=== PATIENT | male | born 1965 | race Caucasian/White ===

== ENCOUNTER 2020-05-11 18:11 | Inpatient (IN) | payer OTHER ==
[~2020-05-11] VITALS: Ht 182.9 cm; Wt 90.3 kg
[2020-05-11 19:13] LABS: BASO % 0 % (0-3); EOS % 0 % (0-3); HEMATOCRIT 39.6 % (39.0-53.0); HEMOGLOBIN 13.1 g/dL (13.0-17.5); LYMPH # 0.5 x10^3/uL (1.0-4.8); LYMPH % 9 % (24-48); MEAN CORPUSCULAR HEMOGLOBIN 30 pg (25-35); MEAN CORPUSCULAR HGB CONC 33 g/dL (31-37); MEAN CORPUSCULAR VOLUME 91 fL (79-100); MONO # 0.5 x10^3/uL (0.0-1.1); MONO % 10 % (0-9); NEUT # 4.4 x10^3/uL (1.8-7.7); NEUT % 81 % (31-73); PLATELET COUNT 201 x10^3/uL (140-400); RED BLOOD COUNT 4.36 x10^6/uL (4.30-5.70); RED CELL DISTRIBUTION WIDTH 15.5 % (11.5-14.5); WHITE BLOOD COUNT 5.5 x10^3/uL (4.0-11.0)
[2020-05-11] MEDS ORDERED: ACETAMINOPHEN 500 MG TABLET PO ONE (19:15)
[2020-05-11 19:20] LABS: CALCIUM 8.2 mg/dL (8.5-10.1); CREATININE 1.7 mg/dL (0.7-1.3); GFR 42.4; POTASSIUM 4.7 mmol/L (3.5-5.1)
--- NOTE | 2020-05-11 19:24 | RAD ---
INDICATION: Reason: n/v/d, PUI / Spl. Instructions: / History: COMPARISON: None. FINDINGS: Single view of chest obtained. Multifocal opacities within the bilateral lungs including the right upper greater than left upper teresa g. Interstitial opacities bilaterally. Cardiac mediastinal silhouette is mildly prominent in size. IMPRESSION: * Multifocal opacities in the right greater than left lung. Could be secondary to bilateral infiltra te but follow-up could be obtained to ensure that this appropriately decreases to exclude neoplastic causes. * There is also some interstitial opacities bilaterally which could be from interstitial infiltrate or edema. Electronically signed by: Farzad Enriquez MD (05/11/2020 7:21 PM) [id number]
[2020-05-11 19:26] LABS: ALBUMIN 2.5 g/dL (3.4-5.0); ALBUMIN/GLOBULIN RATIO 0.8 (1.0-1.7); MAGNESIUM 2.2 mg/dL (1.8-2.4); TOTAL BILIRUBIN 0.5 mg/dL (0.2-1.0); TOTAL PROTEIN 5.8 g/dL (6.4-8.2)
[2020-05-11] MEDS ORDERED: IV NORMAL SALINE 1000ML BAG 1,000 ML IV ONE (19:45)
[2020-05-11 19:50] LABS: BILIRUBIN,URINE NEGATIVE (NEG); CLARITY,URINE CLEAR; COLOR,URINE YELLOW; NITRITE,URINE NEGATIVE (NEG); PH,URINE 6.5 (<5.0-8.0); PROTEIN,URINE 100 mg/dL (NEG-TRACE); UROBILINOGEN,URINE 0.2 mg/dL (0.2 mg/dL)
--- NOTE | 2020-05-11 19:51 | ED.ADGEN ---
Past Medical History Past Medical History: Diabetes-Type II, High Cholesterol, Hypertension, Renal Disease, Other Additional Past Medical Histor: UC - RLQ COLOSTOMY Past Surgical History: Other Additional Past Surgical Histo: UNKNOWN Smoking Status: Never Smoker Alcohol Use: None General Adult EDM: Chief Complaint: SHORTNESS OF BREATH HPI: HPI: Patient is a 55 year old male, brought to the emergency department by EMS for evaluation of hypoxia. The patient had been diagnosed with COVID-19 on May 062020. [facility]. Patient complained of increased shortness of breath, nausea, and weakness. EMS reported that on their arrival the patient's room air oxygen saturation was 90% they applied 3 L via nasal cannula of oxygen and his sats increased to 9495%. Patient denies any palpitations, vomiting, diarrhea, abdominal pain, edema, sore throat, or loss of smell/taste. Patient states he has had some fever and chills in addition to the previous mentioned symptoms. He reports that his chest hurts when he takes a deep breath or when he coughs. He currently rates his pain a 6 out of 10 on the pain scale, he denies any alleviating factors. Review of Systems: Review of Systems: Complete ROS is negative unless otherwise noted in HPI. Current Medications: Current Medications Medications (Trade) Dose Ordered Sig/German Start Time Stop Time Status Last Admin Dose Admin Acetaminophen (Tylenol) 1,000 mg 1X ONCE 05/11/20 19:15 05/11/20 19:16 DC 05/11/20 19:11 1,000 MG Allergies: Allergies: Allergies Coded Allergies Type Severity Reaction Last Updated Verified No Known Drug Allergies 05/11/20 No Physical Exam: PE: See Above Constitutional: Well developed, well nourished, no acute distress, ill appearance. [] HENT: Normocephalic, atraumatic, bilateral external ears normal, nose normal. [] Eyes: PERRLA, EOMI, conjunctiva normal, no discharge. [] Neck: Normal range of motion, no stridor. [] Cardiovascular:Heart rate regular rhythm Lungs & Thorax: Respirations even and unlabored, no retractions, speaking full sentences Skin: Warm, dry, no erythema, no rash. [] Extremities: No cyanosis, ROM intact, no edema. [] Neurologic: Alert and oriented X 3, no focal deficits noted. [] Psychologic: Affect normal, judgement normal, mood normal. [] Current Patient Data: Labs: Laboratory Tests Test 05/11/20 18:30 White Blood Count 5.5 x10^3/uL (4.0-11.0) Red Blood Count 4.36 x10^6/uL (4.30-5.70) Hemoglobin 13.1 g/dL (13.0-17.5) Hematocrit 39.6 % (39.0-53.0) Mean Corpuscular Volume 91 fL (79-100) Mean Corpuscular Hemoglobin 30 pg (25-35) Mean Corpuscular Hemoglobin Concent 33 g/dL (31-37) Red Cell Distribution Width 15.5 % (11.5-14.5) H Platelet Count 201 x10^3/uL (140-400) Neutrophils (%) (Auto) 81 % (31-73) H Lymphocytes (%) (Auto) 9 % (24-48) L Monocytes (%) (Auto) 10 % (0-9) H Eosinophils (%) (Auto) 0 % (0-3) Basophils (%) (Auto) 0 % (0-3) Neutrophils # (Auto) 4.4 x10^3/uL (1.8-7.7) Lymphocytes # (Auto) 0.5 x10^3/uL (1.0-4.8) L Monocytes # (Auto) 0.5 x10^3/uL (0.0-1.1) Eosinophils # (Auto) 0.0 x10^3/uL (0.0-0.7) Basophils # (Auto) 0.0 x10^3/uL (0.0-0.2) Sodium Level 137 mmol/L (136-145) Potassium Level 4.7 mmol/L (3.5-5.1) Chloride Level 100 mmol/L (98-107) Carbon Dioxide Level 27 mmol/L (21-32) Anion Gap 10 (6-14) Blood Urea Nitrogen 20 mg/dL (8-26) Creatinine 1.7 mg/dL (0.7-1.3) H Estimated GFR (Cockcroft-Gault) 42.4 BUN/Creatinine Ratio 12 (6-20) Glucose Level 177 mg/dL (70-99) H Calcium Level 8.2 mg/dL (8.5-10.1) L Magnesium Level 2.2 mg/dL (1.8-2.4) Total Bilirubin 0.5 mg/dL (0.2-1.0) Aspartate Amino Transferase (AST) 78 U/L (15-37) H Alanine Aminotransferase (ALT) 166 U/L (16-63) H Alkaline Phosphatase 129 U/L (46-116) H Total Protein 5.8 g/dL (6.4-8.2) L Albumin 2.5 g/dL (3.4-5.0) L Albumin/Globulin Ratio 0.8 (1.0-1.7) L Lipase 173 U/L (73-393) Laboratory Tests 05/11/20 18:30 Laboratory Tests 05/11/20 18:30 Vital Signs: Vital Signs Date Time Temp Pulse Resp B/P (MAP) Pulse Ox O2 Delivery O2 Flow Rate FiO2 05/11/20 19:19 75 21 151/82 (105) 95 High Flow Nasal Cannula 2.0 05/11/20 18:15 103.1 103.1 EKG: EK-sinus rhythm, rate 74, no STEMI, read by Dr. Lexie Colon [] Heart Score: Risk Factors: Risk Factors: DM, Current or recent (<one month) smoker, HTN, HLP, family history of CAD, obesity. Risk Scores: Score 0 - 3: 2.5% MACE over next 6 weeks - Discharge Home Score 4 - 6: 20.3% MACE over next 6 weeks - Admit for Clinical Observation Score 7 - 10: 72.7% MACE over next 6 weeks - Early Invasive Strategies Radiology/Procedures: Radiology/Procedures: PROCEDURE: CHEST AP ONLY INDICATION: Reason: n/v/d, PUI / Spl. Instructions: / History: COMPARISON: None. FINDINGS: Single view of chest obtained. Multifocal opacities within the bilateral lungs including the right upper greater than left upper lung. Interstitial opacities bilaterally. Cardiac mediastinal silhouette is mildly prominent in size. IMPRESSION: * Multifocal opacities in the right greater than left lung. Could be secondary to bilateral infiltrate but follow-up could be obtained to ensure that this appropriately decreases to exclude neoplastic causes. * There is also some interstitial opacities bilaterally which could be from interstitial infiltrate or edema. Electronically signed by: Farzad Enriquez MD (05/11/2020 7:21 PM) [id number][] Course & Med Decision Making: Course & Med Decision Making Pertinent Labs and Imaging studies reviewed. (See chart for details) 1934-spoke with Dr. Velazquez who is the admitting physician, and care was assumed following discussion of patient. Will admit patient for TOMMY, COVID-19, hypoxia Patient's vital signs stable. Patient remains afebrile, appears nontoxic, respirations even and unlabored. Patient will be admitted to the med/surg floor. Patient's case and plan of care also discussed with Dr. Colon [] Henry Disclaimer: Henry Disclaimer: This electronic medical record was generated, in whole or in part, using a voice recognition dictation system. Departure Departure Impression: Primary Impression: TOMMY (acute kidney injury) Additional Impressions: COVID-19 Hypoxia Disposition: 09 ADMITTED INPT THIS HOSP Admitting Physician: OLU (Marcus) Condition: STABLE Referrals: DEIRDRE MILES (PCP) Problem Qualifiers JUSTIN BRIZUELA MANAGER [employer]ORTS May 11, 2020 19:51
[2020-05-11 20:06] LABS: BACTERIA,URINE 0 /HPF (0-FEW)
[2020-05-11 20:07] LABS: WBC,URINE OCC /HPF (0-4)
[2020-05-11] MEDS ORDERED: ERGOCALCIFEROL (VITAMIN D2) 50,000 UNIT CAPSULE. PO ONE (21:00)
[2020-05-11] MEDS ORDERED: predniSONE 10 MG TABLET PO ONE (21:00)
--- NOTE | 2020-05-11 21:07 | PDOC1 ---
History and Physical Date of Admission Date of Admission DATE: 05/11/20 TIME: 21:01 Identification/Chief Complaint Chief Complaint chest pain, weakness, Source Source: Caregiver, Chart review, Patient History of Present Illness History of Present Illness Mr. Kilpatrick is a prisoner at [facility], and has had 17 negative COVID tests until last week, the 14th, was pos, then symptoms started, mostly malaise, weakness, lethargy and anorexia, with poor liquid and PO intake, and now having more m arked weakness, and cough and marked chest pain. he takes no meds, UC was improved with colon resection surgery years ago,. has been in [facility] detention for at least one year. Past Medical History Cardiovascular: No pertinent hx Pulmonary: No pertinent hx GI: Inflam bowel disease (ulcerative colitis, s/p resection wtih now ostomy) Renal/: Acute renal failure (needed HD for 8 hours a year ago, not here. ) Past Surgical History Past Surgical History: Colon Resection (has ostomy) Family History Family History: No Significant Social History Smoke: No ALCOHOL: none Drugs: None Current Problem List Problem List Problems Medical Problems: (1) TOMMY (acute kidney injury) Status: Acute (2) COVID-19 Status: Acute (3) Hypoxia Status: Acute Current Medications Current Medications Current Medications Acetaminophen (Tylenol) 1,000 mg 1X ONCE PO Last administered on 05/11/20at 19:11; Start 05/11/20 at 19:15; Stop 05/11/20 at 19:16; Status DC Sodium Chloride 1,000 ml @ 1,000 mls/hr 1X ONCE IV Last administered on 05/11/20at 19:39; Start 05/11/20 at 19:45; Stop 05/11/20 at 20:44; Status DC Allergies Allergies: Coded Allergies: No Known Drug Allergies (Unverified , 05/11/20) ROS General: YES: Chills, Fatigue, Malaise PSYCHOLOGICAL ROS: YES: Anxiety, Irritablity, Memory difficulties Eyes: No Blurry vision, No Decreased vision, No Double vision, No Dry eyes, No Excessive tearing, No Eye Pain, No Itchy Eyes, No Loss of vision, No Photophobia, No Scotomata, No Uses contacts, No Uses glasses, No Other HEENT: YES: Heacaches; No: Visual Changes, Hearing change, Nasal congestion, Nasal discharge, Oral lesions, Sinus pain, Sore Throat, Epistaxis, Sneezing, Snoring, Tinnitus, Vertigo, Vocal changes, Other ENDOCRINE: No: Breast Changes, Galactorrhea, Hair Pattern Changes, Hot Flashes, Malaise/lethargy, Mood Swings, Palpitations, Polydipsia/polyuria, Skin Changes, Temperature Intolerance, Unexpected Weight Changes, Other Respiratory: YES: Cough, Shortness of breath, SOB with excertion, Tachypnea; No: Hemoptysis, Orthopnea, Pleuritic Pain, Sputum Changes, Stridor, Wheezing, Other Cardiovascular: yes Chest Pain Gastrointestinal: Yes Abdominal Pain; No Nausea, No Vomiting, No Diarrhea, No Constipation, No Melena, No Hematochezia, No Other Genitourinary: No Dysuria, No Frequency, No Incontinence, No Hematuria, No Retention, No Discharge, No Urgency, No Pain, No Flank Pain, No Other, No , No , No , No , No , No , No Musculoskeletal: Yes Joint Pain (back pain ), Yes Joint Stiffness; No Gait Disturbance, No Joint Swelling, No Muscle Pain, No Muscular Weakness, No Pain In:, No Swelling In:, No Other Neurological: Yes Headaches; No Behavorial Changes, No Bowel/Bladder ControlChng, No Confusion, No Dizziness, No Gait Disturbance, No Impaired Coord/balance, No Memory Loss, No Numbness/Tingling, No Seizures, No Speech Problems, No Tremors, No Visual Changes, No Weakness, No Other Skin: Yes Dry Skin; No Eczema, No Hair Changes, No Lumps, No Mole Changes, No Mottling, No Nail Changes, No Pruritus, No Rash, No Skin Lesion Changes, No Other, No Acne Physical Exam General: Alert, Oriented X3, Cooperative, mild distress, moderate distress HEENT: Atraumatic, PERRLA, EOMI Lungs: Clear to auscultation, Normal air movement Heart: S1S2, RRR Abdomen: Soft, Other (ostomy to RL, with gas noted, palpable) Extremities: No clubbing, No edema, Normal pulses Skin: No rashes, No breakdown, No significant lesion Neuro: Normal speech, Normal tone, Cranial nerves 3-12 NL Psych/Mental Status: Mental status NL, Mood NL Vitals Vitals Vital Signs Date Time Temp Pulse Resp B/P (MAP) Pulse Ox O2 Delivery O2 Flow Rate FiO2 05/11/20 20:19 77 12 121/66 (84) 96 High Flow Nasal Cannula 2.0 05/11/20 18:15 103.1 103.1 Labs Labs Laboratory Tests Test 05/11/20 18:30 05/11/20 19:45 White Blood Count 5.5 x10^3/uL (4.0-11.0) Red Blood Count 4.36 x10^6/uL (4.30-5.70) Hemoglobin 13.1 g/dL (13.0-17.5) Hematocrit 39.6 % (39.0-53.0) Mean Corpuscular Volume 91 fL (79-100) Mean Corpuscular Hemoglobin 30 pg (25-35) Mean Corpuscular Hemoglobin Concent 33 g/dL (31-37) Red Cell Distribution Width 15.5 % (11.5-14.5) Platelet Count 201 x10^3/uL (140-400) Neutrophils (%) (Auto) 81 % (31-73) Lymphocytes (%) (Auto) 9 % (24-48) Monocytes (%) (Auto) 10 % (0-9) Eosinophils (%) (Auto) 0 % (0-3) Basophils (%) (Auto) 0 % (0-3) Neutrophils # (Auto) 4.4 x10^3/uL (1.8-7.7) Lymphocytes # (Auto) 0.5 x10^3/uL (1.0-4.8) Monocytes # (Auto) 0.5 x10^3/uL (0.0-1.1) Eosinophils # (Auto) 0.0 x10^3/uL (0.0-0.7) Basophils # (Auto) 0.0 x10^3/uL (0.0-0.2) Sodium Level 137 mmol/L (136-145) Potassium Level 4.7 mmol/L (3.5-5.1) Chloride Level 100 mmol/L (98-107) Carbon Dioxide Level 27 mmol/L (21-32) Anion Gap 10 (6-14) Blood Urea Nitrogen 20 mg/dL (8-26) Creatinine 1.7 mg/dL (0.7-1.3) Estimated GFR (Cockcroft-Gault) 42.4 BUN/Creatinine Ratio 12 (6-20) Glucose Level 177 mg/dL (70-99) Calcium Level 8.2 mg/dL (8.5-10.1) Magnesium Level 2.2 mg/dL (1.8-2.4) Total Bilirubin 0.5 mg/dL (0.2-1.0) Aspartate Amino Transf (AST/SGOT) 78 U/L (15-37) Alanine Aminotransferase (ALT/SGPT) 166 U/L (16-63) Alkaline Phosphatase 129 U/L (46-116) Total Protein 5.8 g/dL (6.4-8.2) Albumin 2.5 g/dL (3.4-5.0) Albumin/Globulin Ratio 0.8 (1.0-1.7) Lipase 173 U/L (73-393) Urine Collection Type Unknown Urine Color Yellow Urine Clarity Clear Urine pH 6.5 (<5.0-8.0) Urine Specific [place] 1.025 (1.000-1.030) Urine Protein 100 mg/dL (NEG-TRACE) Urine Glucose (UA) 500 mg/dL (NEG) Urine Ketones (Stick) 15 mg/dL (NEG) Urine Blood Moderate (NEG) Urine Nitrite Negative (NEG) Urine Bilirubin Negative (NEG) Urine Urobilinogen Dipstick 0.2 mg/dL (0.2 mg/dL) Urine Leukocyte Esterase Negative (NEG) Urine RBC 1-2 /HPF (0-2) Urine WBC Occ /HPF (0-4) Urine Bacteria 0 /HPF (0-FEW) Laboratory Tests Test 05/11/20 18:30 05/11/20 19:45 White Blood Count 5.5 x10^3/uL (4.0-11.0) Red Blood Count 4.36 x10^6/uL (4.30-5.70) Hemoglobin 13.1 g/dL (13.0-17.5) Hematocrit 39.6 % (39.0-53.0) Mean Corpuscular Volume 91 fL (79-100) Mean Corpuscular Hemoglobin 30 pg (25-35) Mean Corpuscular Hemoglobin Concent 33 g/dL (31-37) Red Cell Distribution Width 15.5 % (11.5-14.5) Platelet Count 201 x10^3/uL (140-400) Neutrophils (%) (Auto) 81 % (31-73) Lymphocytes (%) (Auto) 9 % (24-48) Monocytes (%) (Auto) 10 % (0-9) Eosinophils (%) (Auto) 0 % (0-3) Basophils (%) (Auto) 0 % (0-3) Neutrophils # (Auto) 4.4 x10^3/uL (1.8-7.7) Lymphocytes # (Auto) 0.5 x10^3/uL (1.0-4.8) Monocytes # (Auto) 0.5 x10^3/uL (0.0-1.1) Eosinophils # (Auto) 0.0 x10^3/uL (0.0-0.7) Basophils # (Auto) 0.0 x10^3/uL (0.0-0.2) Sodium Level 137 mmol/L (136-145) Potassium Level 4.7 mmol/L (3.5-5.1) Chloride Level 100 mmol/L (98-107) Carbon Dioxide Level 27 mmol/L (21-32) Anion Gap 10 (6-14) Blood Urea Nitrogen 20 mg/dL (8-26) Creatinine 1.7 mg/dL (0.7-1.3) Estimated GFR (Cockcroft-Gault) 42.4 BUN/Creatinine Ratio 12 (6-20) Glucose Level 177 mg/dL (70-99) Calcium Level 8.2 mg/dL (8.5-10.1) Magnesium Level 2.2 mg/dL (1.8-2.4) Total Bilirubin 0.5 mg/dL (0.2-1.0) Aspartate Amino Transf (AST/SGOT) 78 U/L (15-37) Alanine Aminotransferase (ALT/SGPT) 166 U/L (16-63) Alkaline Phosphatase 129 U/L (46-116) Total Protein 5.8 g/dL (6.4-8.2) Albumin 2.5 g/dL (3.4-5.0) Albumin/Globulin Ratio 0.8 (1.0-1.7) Lipase 173 U/L (73-393) Urine Collection Type Unknown Urine Color Yellow Urine Clarity Clear Urine pH 6.5 (<5.0-8.0) Urine Specific [place] 1.025 (1.000-1.030) Urine Protein 100 mg/dL (NEG-TRACE) Urine Glucose (UA) 500 mg/dL (NEG) Urine Ketones (Stick) 15 mg/dL (NEG) Urine Blood Moderate (NEG) Urine Nitrite Negative (NEG) Urine Bilirubin Negative (NEG) Urine Urobilinogen Dipstick 0.2 mg/dL (0.2 mg/dL) Urine Leukocyte Esterase Negative (NEG) Urine RBC 1-2 /HPF (0-2) Urine WBC Occ /HPF (0-4) Urine Bacteria 0 /HPF (0-FEW) VTE Prophylaxis Ordered VTE Prophylaxis Devices: No VTE Pharmacological Prophylaxi: Yes Assessment/Plan Assessment/Plan acute COVID-19 infection sepsis dyspnea chest pain, prn meds Hx Ulcerative Colitis, severe malnutrition, serum alb 2.5 acute renal failure, vasomotor, diarrhea from illness and poor PO intake, will hydrate 100hr Justifications for Admission Other Justification VERONICA BRIDGES MD May 11, 2020 21:07
[2020-05-11] MEDS ORDERED: DEXTROSE 50% 25 GM / 50ML DISP.SYRIN. IV PRN (21:15)
[2020-05-11] MEDS ORDERED: INSULIN GLARGINE SYRINGE. SQ ONE (21:15)
[2020-05-11] MEDS: oxyCODONE/APAP 5/325 1 TAB TABLET PO PRN (21:53)
[2020-05-11] MEDS: ENOXAPARIN 40 MG/0.4 ML SYRINGE. SQ SCH (21:56)
[2020-05-11] MEDS: IV NORMAL SALINE 1000ML BAG 1,000 ML IV SCH (21:57)
[2020-05-11 23:00] VITALS: BP 130/71
[2020-05-12 03:00] VITALS: BP 150/87
[2020-05-12] MEDS ORDERED: CETI10TA16 PO (03:37)
[2020-05-12] MEDS ORDERED: ATOR10TA60 PO (03:37)
[2020-05-12] MEDS ORDERED: GABA300C18 PO (03:37)
[2020-05-12] MEDS ORDERED: ASPI1TAB31 PO (03:37)
[2020-05-12] MEDS ORDERED: POTA20TA4 PO (03:37)
[2020-05-12] MEDS ORDERED: ONDA4TAB7 PO (03:37)
[2020-05-12] MEDS ORDERED: AMIO200T6 PO (03:37)
[2020-05-12] MEDS ORDERED: FURO-68 PO (03:37)
[2020-05-12] MEDS ORDERED: HUM100VI SQ ×2 (03:37)
[2020-05-12] MEDS ORDERED: PANT40TA77 PO (03:37)
[2020-05-12] MEDS ORDERED: ASPI-252 PO (03:37)
[2020-05-12] MEDS: oxyCODONE/APAP 5/325 1 TAB TABLET PO PRN ×3 (03:39→22:46)
[2020-05-12 07:00] VITALS: BP 133/81
--- NOTE | 2020-05-12 07:38 | EKG ---
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
[2020-05-12 08:08] LABS: BASO % 0 % (0-3); EOS % 0 % (0-3); HEMATOCRIT 39.5 % (39.0-53.0); HEMOGLOBIN 12.9 g/dL (13.0-17.5); LYMPH # 0.3 x10^3/uL (1.0-4.8); LYMPH % 8 % (24-48); MEAN CORPUSCULAR HEMOGLOBIN 30 pg (25-35); MEAN CORPUSCULAR HGB CONC 33 g/dL (31-37); MEAN CORPUSCULAR VOLUME 92 fL (79-100); MONO # 0.2 x10^3/uL (0.0-1.1); MONO % 5 % (0-9); NEUT # 3.1 x10^3/uL (1.8-7.7); NEUT % 87 % (31-73); PLATELET COUNT 192 x10^3/uL (140-400); RED BLOOD COUNT 4.29 x10^6/uL (4.30-5.70); RED CELL DISTRIBUTION WIDTH 15.5 % (11.5-14.5); WHITE BLOOD COUNT 3.6 x10^3/uL (4.0-11.0)
[2020-05-12] MEDS: IV NORMAL SALINE 1000ML BAG 1,000 ML IV SCH ×2 (08:11→17:30)
[2020-05-12] MEDS: VITAMIN B12,B9,B6 COMPLEX 1 TABLET. PO SCH (08:11)
[2020-05-12] MEDS: predniSONE 20 MG TABLET PO SCH (08:15)
[2020-05-12] MEDS: ENOXAPARIN 40 MG/0.4 ML SYRINGE. SQ SCH ×2 (08:16→20:08)
[2020-05-12] MEDS: ASCORBIC ACID 1,000 MG TABLET PO SCH (08:16)
[2020-05-12] MEDS: ZINC SULFATE 220 MG CAPSULE. PO SCH (08:16)
[2020-05-12] MEDS: INSULIN LISPRO 300 UNITS/3 ML VIAL. SQ SCH ×3 (08:20→17:35)
[2020-05-12 08:46] LABS: ALBUMIN 2.1 g/dL (3.4-5.0); ALBUMIN/GLOBULIN RATIO 0.5 (1.0-1.7); CREATININE 1.5 mg/dL (0.7-1.3); POTASSIUM 5.3 mmol/L (3.5-5.1); TOTAL BILIRUBIN 0.4 mg/dL (0.2-1.0); TOTAL PROTEIN 6.1 g/dL (6.4-8.2)
[2020-05-12 09:12] LABS: % BANDS 3 % (0-9); % LYMPHS 4 % (24-48); % MONOS 4 % (0-10); % SEGS 89 % (35-66); PLATELET CLUMP PRESENT; PLT ESTIMATE ADEQUATE (ADEQUATE)
[2020-05-12] MEDS ORDERED: ONDANSETRON PF 4 MG/2 ML VIAL. IVP PRN (09:30)
[2020-05-12 11:00] VITALS: BP 121/75
[2020-05-12] MEDS ORDERED: ASA/APAP/CAFFEINE 250/250/65MG TABLET. PO PRN (11:00)
[2020-05-12] MEDS ORDERED: ONDANSETRON ODT 4 MG TAB.RAPDIS. PO PRN (11:30)
--- NOTE | 2020-05-12 11:39 | PDOC ---
[employer] PROGRESS NOTE Date of Service DOS: DATE: 05/12/20 TIME: 11:31 Chief Complaint Chief Complaint Assessment/Plan acute COVID-19 infection sepsis dyspnea chest pain, prn meds Hx Ulcerative Colitis, severe malnutrition, serum alb 2.5 acute renal failure, vasomotor, diarrhea from illness and poor PO intake, will hydrate 100hr History of Present Illness History of Present Illness Mr. Kilpatrick is a prisoner at [place], and has had 17 negative COVID tests until last week, the th, was pos, then symptoms started, mostly malaise, weakness, lethargy and anorexia, with poor liquid and PO intake, and now having more marked weakness, and cough and marked chest pain. he takes no meds, UC was improved with colon resection surgery years ago,. has been in [place] intermediate for at least one year. 05/12: Patient seen and evaluated bedside. Currently on room air. Febrile overnight. Had some nausea and vomiting today. Will continue with prednisone 40 mg daily. Will add Rocephin and doxycycline. Will attempt to obtain 6- minute walk to evaluate for oxygen requirement, or room air ABG to look for PO2 less than 55 mmHg. Vitals/I&O Vitals/I&O: Vital Signs Date Time Temp Pulse Resp B/P (MAP) Pulse Ox O2 Delivery O2 Flow Rate FiO2 05/12/20 11:00 97.8 93 18 121/75 (90) 93 Room Air 97.8 05/12/20 08:52 2.0 I & O 05/11/20 05/11/20 05/12/20 15:00 23:00 07:00 Intake Total 1000 ml Output Total 600 ml Balance 1000 ml -600 ml Physical Exam General: Alert, Oriented X3, Cooperative, mild distress Heart: Regular rate Lungs: Crackles Abdomen: Soft, Other (ostomy to RL, with gas noted, palpable) Extremities: No clubbing, No edema, Normal pulses Skin: No rashes, No breakdown, No significant lesion Labs Labs: Laboratory Tests Test 05/11/20 18:30 05/11/20 19:45 05/11/20 22:04 05/12/20 07:30 White Blood Count 5.5 x10^3/uL (4.0-11.0) 3.6 x10^3/uL (4.0-11.0) Red Blood Count 4.36 x10^6/uL (4.30-5.70) 4.29 x10^6/uL (4.30-5.70) Hemoglobin 13.1 g/dL (13.0-17.5) 12.9 g/dL (13.0-17.5) Hematocrit 39.6 % (39.0-53.0) 39.5 % (39.0-53.0) Mean Corpuscular Volume 91 fL (79-100) 92 fL (79-100) Mean Corpuscular Hemoglobin 30 pg (25-35) 30 pg (25-35) Mean Corpuscular Hemoglobin Concent 33 g/dL (31-37) 33 g/dL (31-37) Red Cell Distribution Width 15.5 % (11.5-14.5) 15.5 % (11.5-14.5) Platelet Count 201 x10^3/uL (140-400) 192 x10^3/uL (140-400) Neutrophils (%) (Auto) 81 % (31-73) 87 % (31-73) Lymphocytes (%) (Auto) 9 % (24-48) 8 % (24-48) Monocytes (%) (Auto) 10 % (0-9) 5 % (0-9) Eosinophils (%) (Auto) 0 % (0-3) 0 % (0-3) Basophils (%) (Auto) 0 % (0-3) 0 % (0-3) Neutrophils # (Auto) 4.4 x10^3/uL (1.8-7.7) 3.1 x10^3/uL (1.8-7.7) Lymphocytes # (Auto) 0.5 x10^3/uL (1.0-4.8) 0.3 x10^3/uL (1.0-4.8) Monocytes # (Auto) 0.5 x10^3/uL (0.0-1.1) 0.2 x10^3/uL (0.0-1.1) Eosinophils # (Auto) 0.0 x10^3/uL (0.0-0.7) 0.0 x10^3/uL (0.0-0.7) Basophils # (Auto) 0.0 x10^3/uL (0.0-0.2) 0.0 x10^3/uL (0.0-0.2) Sodium Level 137 mmol/L (136-145) 138 mmol/L (136-145) Potassium Level 4.7 mmol/L (3.5-5.1) 5.3 mmol/L (3.5-5.1) Chloride Level 100 mmol/L (98-107) 103 mmol/L (98-107) Carbon Dioxide Level 27 mmol/L (21-32) 29 mmol/L (21-32) Anion Gap 10 (6-14) 6 (6-14) Blood Urea Nitrogen 20 mg/dL (8-26) 22 mg/dL (8-26) Creatinine 1.7 mg/dL (0.7-1.3) 1.5 mg/dL (0.7-1.3) Estimated GFR (Cockcroft-Gault) 42.4 49.0 BUN/Creatinine Ratio 12 (6-20) 15 (6-20) Glucose Level 177 mg/dL (70-99) 254 mg/dL (70-99) Calcium Level 8.2 mg/dL (8.5-10.1) 8.0 mg/dL (8.5-10.1) Magnesium Level 2.2 mg/dL (1.8-2.4) Total Bilirubin 0.5 mg/dL (0.2-1.0) 0.4 mg/dL (0.2-1.0) Aspartate Amino Transf (AST/SGOT) 78 U/L (15-37) 73 U/L (15-37) Alanine Aminotransferase (ALT/SGPT) 166 U/L (16-63) 141 U/L (16-63) Alkaline Phosphatase 129 U/L (46-116) 126 U/L (46-116) Total Protein 5.8 g/dL (6.4-8.2) 6.1 g/dL (6.4-8.2) Albumin 2.5 g/dL (3.4-5.0) 2.1 g/dL (3.4-5.0) Albumin/Globulin Ratio 0.8 (1.0-1.7) 0.5 (1.0-1.7) Lipase 173 U/L (73-393) Urine Collection Type Unknown Urine Color Yellow Urine Clarity Clear Urine pH 6.5 (<5.0-8.0) Urine Specific [place] 1.025 (1.000-1.030) Urine Protein 100 mg/dL (NEG-TRACE) Urine Glucose (UA) 500 mg/dL (NEG) Urine Ketones (Stick) 15 mg/dL (NEG) Urine Blood Moderate (NEG) Urine Nitrite Negative (NEG) Urine Bilirubin Negative (NEG) Urine Urobilinogen Dipstick 0.2 mg/dL (0.2 mg/dL) Urine Leukocyte Esterase Negative (NEG) Urine RBC 1-2 /HPF (0-2) Urine WBC Occ /HPF (0-4) Urine Bacteria 0 /HPF (0-FEW) Glucose (Fingerstick) 160 mg/dL (70-99) Segmented Neutrophils % 89 % (35-66) Band Neutrophils % 3 % (0-9) Lymphocytes % 4 % (24-48) Monocytes % 4 % (0-10) Platelet Estimate Adequate (ADEQUATE) Platelet Clumps, EDTA Present Test 05/12/20 08:14 Glucose (Fingerstick) 254 mg/dL (70-99) Assessment and Plan Assessmemt and Plan Problems Medical Problems: (1) TOMMY (acute kidney injury) Status: Acute (2) COVID-19 Status: Acute (3) Hypoxia Status: Acute Comment Review of Relevant I have reviewed the following items nallely (where applicable) has been applied. Medications: Current Medications Medications (Trade) Dose Ordered Sig/German Route PRN Reason Start Time Stop Time Status Last Admin Dose Admin Acetaminophen (Tylenol) 1,000 mg 1X ONCE PO 05/11/20 19:15 05/11/20 19:16 DC 05/11/20 19:11 Sodium Chloride 1,000 ml @ 1,000 mls/hr 1X ONCE IV 05/11/20 19:45 05/11/20 20:44 DC 05/11/20 19:39 Zinc Sulfate (Orazinc) 220 mg DAILY PO 05/12/20 09:00 05/12/20 08:16 Prednisone (Prednisone) 40 mg DAILY PO 05/12/20 09:00 05/12/20 08:15 Prednisone (Prednisone) 50 mg 1X ONCE PO 05/11/20 21:00 05/11/20 21:01 DC 05/11/20 21:57 Vitamin B Complex (Folbic Tablet) 1 tab DAILY PO 05/12/20 09:00 05/12/20 08:11 Ergocalciferol (Vitamin D2) 50,000 unit 1X ONCE PO 05/11/20 21:00 05/11/20 21:01 DC 05/11/20 21:56 Ascorbic Acid (Vitamin C) 1,000 mg DAILY PO 05/12/20 09:00 05/12/20 08:16 Sodium Chloride 1,000 ml @ 100 mls/hr Q10H IV 05/11/20 21:00 05/12/20 08:11 Enoxaparin Sodium (Lovenox 40mg Syringe) 40 mg BID SQ 05/11/20 21:00 05/12/20 08:16 Oxycodone/ Acetaminophen (Percocet 5/325) 1 tab PRN Q4HRS PRN PO SEVERE PAIN 7-10 05/11/20 21:00 05/12/20 08:52 Insulin Human Lispro (HumaLOG) 0-7 UNITS TIDWMEALS SQ 05/12/20 08:00 05/12/20 08:20 Insulin Glargine (Lantus Syringe) 10 unit 1X ONCE SQ 05/11/20 21:15 05/11/20 21:16 DC 05/11/20 21:59 Ondansetron HCl (Zofran) 4 mg PRN Q6HRS PRN IVP NAUSEA/VOMITING 05/12/20 09:30 05/12/20 09:45 Justifications for Admission Other Justification ABDI BARRIOS MD May 12, 2020 11:39
[2020-05-12] MEDS: ASPIRIN ENTERIC COATED 325 MG TABLET.DR. PO SCH (11:57)
[2020-05-12] MEDS: AMIODARONE HCL 200 MG TABLET. PO SCH (11:57)
[2020-05-12] MEDS: CETIRIZINE HCL 10 MG TABLET. PO SCH (11:58)
[2020-05-12] MEDS: FUROSEMIDE 40 MG TABLET. PO SCH (11:58)
[2020-05-12] MEDS: cefTRIAXone IV Push 1 GM VIAL. IVP SCH (12:13)
[2020-05-12] MEDS: DOXYCYCLINE HYCLATE 100 MG in IV DEXTROSE 5% 100ML 100 ML IV SCH ×2 (12:14→20:07)
[2020-05-12] MEDS: ONDANSETRON PF 4 MG/2 ML VIAL. IVP PRN ×3 (13:30→22:55)
[2020-05-12] MEDS: GABAPENTIN 300 MG CAPSULE. PO SCH ×2 (14:00→20:07)
[2020-05-12 15:00] VITALS: BP 147/88
[2020-05-12] MEDS: PROCHLORPERAZINE 10 MG/2 ML VIAL. IV PRN ×2 (15:02→20:36)
--- NOTE | 2020-05-12 16:12 | EKG ---
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
[2020-05-12] MEDS: INSULIN NPH/REG HUM 70/30 300 UNITS/3 ML VIAL. SQ SCH (17:48)
[2020-05-12] MEDS ORDERED: INSULIN NPH/REG HUM 70/30 300 UNITS/3 ML VIAL. SQ SCH (18:00)
[2020-05-12 19:00] VITALS: BP 134/82
[2020-05-12] MEDS: LACTOBACILLUS RHAMNOSUS GG 1 CAPSULE. PO SCH (20:07)
[2020-05-12 23:00] VITALS: BP 144/92
[2020-05-13 03:00] VITALS: BP 125/76
[2020-05-13] MEDS: IV NORMAL SALINE 1000ML BAG 1,000 ML IV SCH ×3 (05:20→21:20)
[2020-05-13] MEDS: PROCHLORPERAZINE 10 MG/2 ML VIAL. IV PRN ×2 (05:57→12:28)
[2020-05-13 07:53] VITALS: BP 123/78
[2020-05-13] MEDS: INSULIN LISPRO 300 UNITS/3 ML VIAL. SQ SCH ×4 (08:55→21:11)
[2020-05-13] MEDS: INSULIN NPH/REG HUM 70/30 300 UNITS/3 ML VIAL. SQ SCH ×2 (08:56→17:53)
[2020-05-13] MEDS: LACTOBACILLUS RHAMNOSUS GG 1 CAPSULE. PO SCH ×2 (08:57→21:13)
[2020-05-13] MEDS: ASPIRIN ENTERIC COATED 325 MG TABLET.DR. PO SCH (08:57)
[2020-05-13] MEDS: ATORVASTATIN CALCIUM 10 MG TABLET. PO SCH (08:57)
[2020-05-13] MEDS: ASCORBIC ACID 1,000 MG TABLET PO SCH (08:57)
[2020-05-13] MEDS: VITAMIN B12,B9,B6 COMPLEX 1 TABLET. PO SCH (08:57)
[2020-05-13] MEDS: predniSONE 20 MG TABLET PO SCH (08:57)
[2020-05-13] MEDS: ZINC SULFATE 220 MG CAPSULE. PO SCH (08:57)
[2020-05-13] MEDS: GABAPENTIN 300 MG CAPSULE. PO SCH ×3 (08:57→21:13)
[2020-05-13] MEDS: PANTOPRAZOLE 40 MG TABLET.DR. PO SCH (08:57)
[2020-05-13] MEDS: FUROSEMIDE 40 MG TABLET. PO SCH (08:57)
[2020-05-13] MEDS: AMIODARONE HCL 200 MG TABLET. PO SCH (08:58)
[2020-05-13] MEDS: DOXYCYCLINE HYCLATE 100 MG in IV DEXTROSE 5% 100ML 100 ML IV SCH ×2 (08:59→21:13)
[2020-05-13] MEDS: CETIRIZINE HCL 10 MG TABLET. PO SCH (08:59)
[2020-05-13] MEDS: ENOXAPARIN 40 MG/0.4 ML SYRINGE. SQ SCH ×2 (09:00→21:13)
[2020-05-13] MEDS ORDERED: POTASSIUM CHLORIDE 20 MEQ TABLET.ER. PO SCH (09:00)
[2020-05-13 11:09] VITALS: BP 125/79
--- NOTE | 2020-05-13 12:10 | PDOC ---
[employer] PROGRESS NOTE Date of Service DOS: DATE: 05/13/20 TIME: 12:03 Chief Complaint Chief Complaint Assessment/Plan acute COVID-19 infection sepsis dyspnea chest pain, prn meds Hx Ulcerative Colitis, severe malnutrition, serum alb 2.5 acute renal failure, vasomotor, diarrhea from illness and poor PO intake, will hydrate 100hr History of Present Illness History of Present Illness Mr. Kilpatrick is a prisoner at [place], and has had 17 negative COVID tests until last week, the th, was pos, then symptoms started, mostly malaise, weakness, lethargy and anorexia, with poor liquid and PO intake, and now having more marked weakness, and cough and marked chest pain. he takes no meds, UC was improved with colon resection surgery years ago,. has been in [place] [facility] for at least one year. 05/12: Patient seen and evaluated bedside. Currently on room air. Febrile overnight. Had some nausea and vomiting today. Will continue with prednisone 40 mg daily. Will add Rocephin and doxycycline. Will attempt to obtain 6- minute walk to evaluate for oxygen requirement, or room air ABG to look for PO2 less than 55 mmHg. 05/13: Afebrile. Some nausea and vomiting today. Currently breathing on 4 L nasal cannula. Transaminitis noted, but trending down. Will continue to trend and sitter initiating remdesivir when LFTs improved. Continue Rocephin, doxycycline, steroids. Complains of some chest discomfort when he takes deep breath. Will call pharmacy to provide Breo. Vitals/I&O Vitals/I&O: Vital Signs Date Time Temp Pulse Resp B/P (MAP) Pulse Ox O2 Delivery O2 Flow Rate FiO2 05/13/20 11:09 97.3 66 18 125/79 (94) 92 Nasal Cannula 4.0 97.3 I & O 05/12/20 05/12/20 05/13/20 15:00 23:00 07:00 Intake Total 240 ml Output Total 805 ml 550 ml Balance -565 ml -550 ml Physical Exam General: Alert, Oriented X3, Cooperative, mild distress Heart: Regular rate Lungs: Crackles Abdomen: Soft, Other (ostomy to RL, with gas noted, palpable) Extremities: No clubbing, No edema, Normal pulses Skin: No rashes, No breakdown, No significant lesion Assessment and Plan Assessmemt and Plan Problems Medical Problems: (1) TOMMY (acute kidney injury) Status: Acute (2) COVID-19 Status: Acute (3) Hypoxia Status: Acute Comment Review of Relevant I have reviewed the following items nallely (where applicable) has been applied. Medications: Current Medications Medications (Trade) Dose Ordered Sig/German Route PRN Reason Start Time Stop Time Status Last Admin Dose Admin Atorvastatin Calcium (Lipitor) 10 mg DAILY PO 05/13/20 09:00 05/13/20 08:57 Gabapentin (Neurontin) 300 mg TID PO 05/12/20 14:00 05/13/20 08:57 Insulin Human Isoph/Insulin Regular (HumuLIN 70-30 VIAL) 30 units QAM SQ 05/13/20 09:00 05/13/20 08:56 Pantoprazole Sodium (Protonix) 40 mg DAILYAC PO 05/13/20 07:30 05/13/20 08:57 Ceftriaxone Sodium (Rocephin) 1 gm Q24H IVP 05/12/20 12:30 05/12/20 12:13 Doxycycline Hyclate 100 mg/ Dextrose 100 ml @ 50 mls/hr Q12HR IV 05/12/20 12:30 05/13/20 08:59 Prochlorperazine Edisylate (Compazine) 10 mg PRN Q6HRS PRN IV NAUSEA/VOMITING 2ND CHOICE 05/12/20 13:30 05/13/20 05:57 Lactobacillus Rhamnosus (Culturelle) 1 cap BID PO 05/12/20 21:00 05/13/20 08:57 Insulin Human Isoph/Insulin Regular (HumuLIN 70-30 VIAL) 20 units QPM SQ 05/12/20 18:00 05/12/20 17:48 Justifications for Admission Other Justification ABDI BARRIOS MD May 13, 2020 12:10
[2020-05-13] MEDS: cefTRIAXone IV Push 1 GM VIAL. IVP SCH (12:31)
[2020-05-13 15:03] VITALS: BP 139/87
[2020-05-13] MEDS: FLUTICASONE/VILANTEROL 200/25 INHALER. INH SCH (17:44)
[2020-05-13 19:00] VITALS: BP 135/85
[2020-05-13 23:11] VITALS: BP 134/82
[2020-05-14 03:00] VITALS: BP 149/89
[2020-05-14 04:46] LABS: BASO % 0 % (0-3); EOS % 0 % (0-3); HEMATOCRIT 39.2 % (39.0-53.0); LYMPH # 0.3 x10^3/uL (1.0-4.8); LYMPH % 3 % (24-48); MEAN CORPUSCULAR HEMOGLOBIN 31 pg (25-35); MEAN CORPUSCULAR HGB CONC 33 g/dL (31-37); MEAN CORPUSCULAR VOLUME 92 fL (79-100); MONO # 0.6 x10^3/uL (0.0-1.1); MONO % 6 % (0-9); NEUT % 90 % (31-73); PLATELET COUNT 262 x10^3/uL (140-400); RED BLOOD COUNT 4.26 x10^6/uL (4.30-5.70); RED CELL DISTRIBUTION WIDTH 15.8 % (11.5-14.5)
[2020-05-14 05:22] LABS: ALBUMIN 2.1 g/dL (3.4-5.0); CALCIUM 7.9 mg/dL (8.5-10.1); CREATININE 1.6 mg/dL (0.7-1.3); DIRECT BILIRUBIN 0.1 mg/dL (0.0-0.2); GFR 45.4; POTASSIUM 4.3 mmol/L (3.5-5.1); TOTAL BILIRUBIN 0.3 mg/dL (0.2-1.0); TOTAL PROTEIN 5.9 g/dL (6.4-8.2)
[2020-05-14 07:00] VITALS: BP 132/86
[2020-05-14] MEDS: DEXAMETHASONE SOD PHOS 4 MG/ML VIAL IVP SCH (08:13)
[2020-05-14] MEDS: ENOXAPARIN 40 MG/0.4 ML SYRINGE. SQ SCH ×2 (08:15→21:22)
[2020-05-14] MEDS: LACTOBACILLUS RHAMNOSUS GG 1 CAPSULE. PO SCH ×2 (08:16→21:23)
[2020-05-14] MEDS: ZINC SULFATE 220 MG CAPSULE. PO SCH (08:17)
[2020-05-14] MEDS: CETIRIZINE HCL 10 MG TABLET. PO SCH (08:17)
[2020-05-14] MEDS: VITAMIN B12,B9,B6 COMPLEX 1 TABLET. PO SCH (08:17)
[2020-05-14] MEDS: ASCORBIC ACID 1,000 MG TABLET PO SCH (08:17)
[2020-05-14] MEDS: FUROSEMIDE 40 MG TABLET. PO SCH (08:17)
[2020-05-14] MEDS: PANTOPRAZOLE 40 MG TABLET.DR. PO SCH (08:17)
[2020-05-14] MEDS: ASPIRIN ENTERIC COATED 325 MG TABLET.DR. PO SCH (08:17)
[2020-05-14] MEDS: GABAPENTIN 300 MG CAPSULE. PO SCH ×3 (08:17→21:23)
[2020-05-14] MEDS: AMIODARONE HCL 200 MG TABLET. PO SCH (08:18)
[2020-05-14] MEDS: FLUTICASONE/VILANTEROL 200/25 INHALER. INH SCH (08:18)
[2020-05-14] MEDS: ATORVASTATIN CALCIUM 10 MG TABLET. PO SCH (08:18)
[2020-05-14] MEDS: IV NORMAL SALINE 1000ML BAG 1,000 ML IV SCH ×2 (08:18→21:22)
[2020-05-14] MEDS: DOXYCYCLINE HYCLATE 100 MG in IV DEXTROSE 5% 100ML 100 ML IV SCH ×2 (08:19→21:22)
[2020-05-14] MEDS: INSULIN NPH/REG HUM 70/30 300 UNITS/3 ML VIAL. SQ SCH (08:33)
[2020-05-14 11:00] VITALS: BP 155/82
[2020-05-14] MEDS: cefTRIAXone IV Push 1 GM VIAL. IVP SCH (11:36)
[2020-05-14] MEDS: guaiFENesin/CODEINE 100mg/10mg 5 ML LIQUID PO PRN ×2 (11:37→21:23)
[2020-05-14] MEDS: INSULIN LISPRO 300 UNITS/3 ML VIAL. SQ SCH ×2 (11:38→16:50)
[2020-05-14 15:00] VITALS: BP 148/95
[2020-05-14] MEDS ORDERED: REMDESIVIR LOAD in IV NORMAL SALINE 250ML TV IV ONE (15:30)
[2020-05-14] MEDS ORDERED: INSULIN LISPRO 300 UNITS/3 ML VIAL. SQ ONE (16:30)
--- NOTE | 2020-05-14 16:37 | PDOC ---
[employer] PROGRESS NOTE Date of Service DOS: DATE: 05/14/20 TIME: 16:36 Chief Complaint Chief Complaint Assessment/Plan acute COVID-19 infection sepsis dyspnea chest pain, prn meds Hx Ulcerative Colitis, severe malnutrition, serum alb 2.5 acute renal failure, vasomotor, diarrhea from illness and poor PO intake, will hydrate 100hr History of Present Illness History of Present Illness Mr. Kilpatrick is a prisoner at [place], and has had 17 negative COVID tests until last week, the , was pos, then symptoms started, mostly malaise, weakness, lethargy and anorexia, with poor liquid and PO intake, and now having more marked weakness, and cough and marked chest pain. he takes no meds, UC was improved with colon resection surgery years ago,. has been in [facility] for at least one year. 05/12: Patient seen and evaluated bedside. Currently on room air. Febrile overnight. Had some nausea and vomiting today. Will continue with prednisone 40 mg daily. Will add Rocephin and doxycycline. Will attempt to obtain 6- minute walk to evaluate for oxygen requirement, or room air ABG to look for PO2 less than 55 mmHg. 05/13: Afebrile. Some nausea and vomiting today. Currently breathing on 4 L nasal cannula. Transaminitis noted, but trending down. Will continue to trend and sitter initiating remdesivir when LFTs improved. Continue Rocephin, doxycycline, steroids. Complains of some chest discomfort when he takes deep breath. Will call pharmacy to provide Breo. 05/14: Patient seen and evaluated. Complains of some pleuritic chest pain and chest tenderness. Breathing 40s nasal cannula, afebrile. LFTs improving. Will initiate remdesivir. Discussed risk versus benefit with patient. Will continue to monitor liver function tests. Vitals/I&O Vitals/I&O: Vital Signs Date Time Temp Pulse Resp B/P (MAP) Pulse Ox O2 Delivery O2 Flow Rate FiO2 05/14/20 11:00 98.4 105 18 155/82 (106) 92 Nasal Cannula 4.0 98.4 I & O 05/13/20 05/13/20 05/14/20 15:00 23:00 07:00 Intake Total 500 ml 400 ml 640 ml Output Total 650 ml 2000 ml 400 ml Balance -150 ml -1600 ml 240 ml Physical Exam General: Alert, Oriented X3, Cooperative, mild distress Heart: Regular rate Lungs: Crackles Abdomen: Soft, Other (ostomy to RL, with gas noted, palpable) Extremities: No clubbing, No edema, Normal pulses Skin: No rashes, No breakdown, No significant lesion Labs Labs: Laboratory Tests Test 05/13/20 19:18 05/14/20 04:30 05/14/20 07:23 05/14/20 10:49 Glucose (Fingerstick) 371 mg/dL (70-99) 276 mg/dL (70-99) 368 mg/dL (70-99) White Blood Count 10.0 x10^3/uL (4.0-11.0) Red Blood Count 4.26 x10^6/uL (4.30-5.70) Hemoglobin 13.0 g/dL (13.0-17.5) Hematocrit 39.2 % (39.0-53.0) Mean Corpuscular Volume 92 fL (79-100) Mean Corpuscular Hemoglobin 31 pg (25-35) Mean Corpuscular Hemoglobin Concent 33 g/dL (31-37) Red Cell Distribution Width 15.8 % (11.5-14.5) Platelet Count 262 x10^3/uL (140-400) Neutrophils (%) (Auto) 90 % (31-73) Lymphocytes (%) (Auto) 3 % (24-48) Monocytes (%) (Auto) 6 % (0-9) Eosinophils (%) (Auto) 0 % (0-3) Basophils (%) (Auto) 0 % (0-3) Neutrophils # (Auto) 9.0 x10^3/uL (1.8-7.7) Lymphocytes # (Auto) 0.3 x10^3/uL (1.0-4.8) Monocytes # (Auto) 0.6 x10^3/uL (0.0-1.1) Eosinophils # (Auto) 0.0 x10^3/uL (0.0-0.7) Basophils # (Auto) 0.0 x10^3/uL (0.0-0.2) Sodium Level 140 mmol/L (136-145) Potassium Level 4.3 mmol/L (3.5-5.1) Chloride Level 106 mmol/L (98-107) Carbon Dioxide Level 27 mmol/L (21-32) Anion Gap 7 (6-14) Blood Urea Nitrogen 22 mg/dL (8-26) Creatinine 1.6 mg/dL (0.7-1.3) Estimated GFR (Cockcroft-Gault) 45.4 Glucose Level 360 mg/dL (70-99) Calcium Level 7.9 mg/dL (8.5-10.1) Total Bilirubin 0.3 mg/dL (0.2-1.0) Direct Bilirubin 0.1 mg/dL (0.0-0.2) Aspartate Amino Transf (AST/SGOT) 42 U/L (15-37) Alanine Aminotransferase (ALT/SGPT) 111 U/L (16-63) Alkaline Phosphatase 190 U/L (46-116) Total Protein 5.9 g/dL (6.4-8.2) Albumin 2.1 g/dL (3.4-5.0) Assessment and Plan Assessmemt and Plan Problems Medical Problems: (1) TOMMY (acute kidney injury) Status: Acute (2) COVID-19 Status: Acute (3) Hypoxia Status: Acute Comment Review of Relevant I have reviewed the following items nallely (where applicable) has been applied. Medications: Current Medications Medications (Trade) Dose Ordered Sig/German Route PRN Reason Start Time Stop Time Status Last Admin Dose Admin Dexamethasone Sodium Phosphate (Decadron) 6 mg DAILY IVP 05/14/20 09:00 05/14/20 08:13 Guaifenesin/ Codeine Phosphate (Robitussin Ac) 5 ml PRN Q6HRS PRN PO COUGH 05/14/20 11:30 05/14/20 11:37 Remdesivir 200 mg/ Sodium Chloride 210 ml @ 210 mls/hr 1X ONCE IV 05/14/20 15:30 05/14/20 16:29 DC 05/14/20 16:08 Justifications for Admission Other Justification ABDI BARRIOS MD May 14, 2020 16:37
[2020-05-14] MEDS ORDERED: DEXTROSE 50% 25 GM / 50ML DISP.SYRIN. IV PRN (16:45)
[2020-05-14 19:52] VITALS: BP 148/90
[2020-05-14] MEDS ORDERED: INSULIN GLARGINE SYRINGE. SQ SCH (21:00)
[2020-05-14 23:28] VITALS: BP 128/77
[2020-05-15 03:53] VITALS: BP 142/87
[2020-05-15] MEDS: IV NORMAL SALINE 1000ML BAG 1,000 ML IV SCH ×2 (05:00→13:34)
[2020-05-15 05:17] LABS: BASO % 0 % (0-3); EOS % 0 % (0-3); HEMATOCRIT 38.8 % (39.0-53.0); HEMOGLOBIN 12.2 g/dL (13.0-17.5); LYMPH # 0.3 x10^3/uL (1.0-4.8); LYMPH % 4 % (24-48); MEAN CORPUSCULAR HEMOGLOBIN 29 pg (25-35); MEAN CORPUSCULAR HGB CONC 32 g/dL (31-37); MEAN CORPUSCULAR VOLUME 92 fL (79-100); MONO # 0.5 x10^3/uL (0.0-1.1); MONO % 6 % (0-9); NEUT # 8.1 x10^3/uL (1.8-7.7); NEUT % 91 % (31-73); PLATELET COUNT 307 x10^3/uL (140-400); RED BLOOD COUNT 4.21 x10^6/uL (4.30-5.70); RED CELL DISTRIBUTION WIDTH 15.9 % (11.5-14.5)
[2020-05-15 05:39] LABS: ALBUMIN 2.1 g/dL (3.4-5.0); CALCIUM 7.8 mg/dL (8.5-10.1); CREATININE 1.5 mg/dL (0.7-1.3); DIRECT BILIRUBIN 0.1 mg/dL (0.0-0.2); POTASSIUM 4.2 mmol/L (3.5-5.1); TOTAL BILIRUBIN 0.4 mg/dL (0.2-1.0); TOTAL PROTEIN 5.7 g/dL (6.4-8.2)
[2020-05-15] MEDS: oxyCODONE/APAP 5/325 1 TAB TABLET PO PRN (05:45)
[2020-05-15] MEDS: guaiFENesin/CODEINE 100mg/10mg 5 ML LIQUID PO PRN (05:45)
[2020-05-15 07:00] VITALS: BP 141/81
[2020-05-15] MEDS: ASCORBIC ACID 1,000 MG TABLET PO SCH (09:36)
[2020-05-15] MEDS: ZINC SULFATE 220 MG CAPSULE. PO SCH (09:36)
[2020-05-15] MEDS: CETIRIZINE HCL 10 MG TABLET. PO SCH (09:36)
[2020-05-15] MEDS: VITAMIN B12,B9,B6 COMPLEX 1 TABLET. PO SCH (09:36)
[2020-05-15] MEDS: PANTOPRAZOLE 40 MG TABLET.DR. PO SCH (09:39)
[2020-05-15] MEDS: FUROSEMIDE 40 MG TABLET. PO SCH (09:39)
[2020-05-15] MEDS: GABAPENTIN 300 MG CAPSULE. PO SCH ×3 (09:40→19:54)
[2020-05-15] MEDS: AMIODARONE HCL 200 MG TABLET. PO SCH (09:41)
[2020-05-15] MEDS: ATORVASTATIN CALCIUM 10 MG TABLET. PO SCH (09:41)
[2020-05-15] MEDS: ASPIRIN ENTERIC COATED 325 MG TABLET.DR. PO SCH (09:41)
[2020-05-15] MEDS: DEXAMETHASONE SOD PHOS 4 MG/ML VIAL IVP SCH (09:42)
[2020-05-15] MEDS: FLUTICASONE/VILANTEROL 200/25 INHALER. INH SCH (09:43)
[2020-05-15] MEDS: DOXYCYCLINE HYCLATE 100 MG in IV DEXTROSE 5% 100ML 100 ML IV SCH (09:45)
[2020-05-15] MEDS: ENOXAPARIN 40 MG/0.4 ML SYRINGE. SQ SCH ×2 (09:46→19:57)
[2020-05-15] MEDS: LACTOBACILLUS RHAMNOSUS GG 1 CAPSULE. PO SCH ×2 (09:46→20:19)
[2020-05-15] MEDS: INSULIN LISPRO 300 UNITS/3 ML VIAL. SQ SCH ×4 (09:59→21:21)
[2020-05-15 11:00] VITALS: BP 131/83
[2020-05-15] MEDS ORDERED: INSULIN LISPRO 300 UNITS/3 ML VIAL. SQ ONE (12:00)
[2020-05-15] MEDS: cefTRIAXone IV Push 1 GM VIAL. IVP SCH (12:06)
[2020-05-15] MEDS: REMDESIVIR 100mg in NORMAL SALINE 250ML X 4 DAYS IV SCH (12:06)
[2020-05-15] MEDS: DOXYCYCLINE HYCLATE 100 MG TABLET PO SCH ×2 (13:01→19:55)
[2020-05-15 15:00] VITALS: BP 130/74
[2020-05-15 19:00] VITALS: BP 151/89
--- NOTE | 2020-05-15 20:16 | PDOC ---
[employer] PROGRESS NOTE Date of Service DOS: DATE: 05/15/20 TIME: 20:14 Chief Complaint Chief Complaint Assessment/Plan acute COVID-19 infection sepsis dyspnea chest pain, prn meds Hx Ulcerative Colitis, severe malnutrition, serum alb 2.5 acute renal failure, vasomotor, diarrhea from illness and poor PO intake, will hydrate 100hr History of Present Illness History of Present Illness Mr. Kilpatrick is a prisoner at [facility], and has had 17 negative COVID tests until last week, the , was pos, then symptoms started, mostly malaise, weakness, lethargy and anorexia, with poor liquid and PO intake, and now having more marked weakness, and cough and marked chest pain. he takes no meds, UC was improved with colon resection surgery years ago,. has been in [facility] for at least one year. 05/12: Patient seen and evaluated bedside. Currently on room air. Febrile overnight. Had some nausea and vomiting today. Will continue with prednisone 40 mg daily. Will add Rocephin and doxycycline. Will attempt to obtain 6- minute walk to evaluate for oxygen requirement, or room air ABG to look for PO2 less than 55 mmHg. 05/13: Afebrile. Some nausea and vomiting today. Currently breathing on 4 L nasal cannula. Transaminitis noted, but trending down. Will continue to trend and sitter initiating remdesivir when LFTs improved. Continue Rocephin, doxycycline, steroids. Complains of some chest discomfort when he takes deep breath. Will call pharmacy to provide Breo. 05/14: Patient seen and evaluated. Complains of some pleuritic chest pain and chest tenderness. Breathing 40s nasal cannula, afebrile. LFTs improving. Will initiate remdesivir. Discussed risk versus benefit with patient. Will continue to monitor liver function tests. 05/15: Afebrile. Breathing 2 L nasal cannula. LFTs improving, will continue to monitor. Continue steroids, remdesivir, antibiotics. Significant hyperglycemia this evening. Report from RN that patient is sneaking food in between ADA meals discussed with patient in the morning strict ADA diet, especially while on steroids. Vitals/I&O Vitals/I&O: Vital Signs Date Time Temp Pulse Resp B/P (MAP) Pulse Ox O2 Delivery O2 Flow Rate FiO2 05/15/20 15:00 97.5 68 20 130/74 (92) 95 Nasal Cannula 3.0 97.5 I & O 05/14/20 05/14/20 05/15/20 15:00 23:00 07:00 Intake Total 700 ml 500 ml Output Total 400 ml 1550 ml 1750 ml Balance 300 ml -1550 ml -1250 ml Physical Exam General: Alert, Oriented X3, Cooperative, No acute distress Heart: Regular rate Lungs: Crackles Abdomen: Soft, Other (ostomy to RL, with gas noted, palpable) Extremities: No clubbing, No edema, Normal pulses Skin: No rashes, No breakdown, No significant lesion Labs Labs: Laboratory Tests Test 05/14/20 20:44 05/15/20 03:30 05/15/20 07:56 05/15/20 11:47 Glucose (Fingerstick) 373 mg/dL (70-99) 271 mg/dL (70-99) 342 mg/dL (70-99) White Blood Count 9.0 x10^3/uL (4.0-11.0) Red Blood Count 4.21 x10^6/uL (4.30-5.70) Hemoglobin 12.2 g/dL (13.0-17.5) Hematocrit 38.8 % (39.0-53.0) Mean Corpuscular Volume 92 fL (79-100) Mean Corpuscular Hemoglobin 29 pg (25-35) Mean Corpuscular Hemoglobin Concent 32 g/dL (31-37) Red Cell Distribution Width 15.9 % (11.5-14.5) Platelet Count 307 x10^3/uL (140-400) Neutrophils (%) (Auto) 91 % (31-73) Lymphocytes (%) (Auto) 4 % (24-48) Monocytes (%) (Auto) 6 % (0-9) Eosinophils (%) (Auto) 0 % (0-3) Basophils (%) (Auto) 0 % (0-3) Neutrophils # (Auto) 8.1 x10^3/uL (1.8-7.7) Lymphocytes # (Auto) 0.3 x10^3/uL (1.0-4.8) Monocytes # (Auto) 0.5 x10^3/uL (0.0-1.1) Eosinophils # (Auto) 0.0 x10^3/uL (0.0-0.7) Basophils # (Auto) 0.0 x10^3/uL (0.0-0.2) Sodium Level 139 mmol/L (136-145) Potassium Level 4.2 mmol/L (3.5-5.1) Chloride Level 103 mmol/L (98-107) Carbon Dioxide Level 29 mmol/L (21-32) Anion Gap 7 (6-14) Blood Urea Nitrogen 20 mg/dL (8-26) Creatinine 1.5 mg/dL (0.7-1.3) Estimated GFR (Cockcroft-Gault) 49.0 Glucose Level 359 mg/dL (70-99) Calcium Level 7.8 mg/dL (8.5-10.1) Total Bilirubin 0.4 mg/dL (0.2-1.0) Direct Bilirubin 0.1 mg/dL (0.0-0.2) Aspartate Amino Transf (AST/SGOT) 39 U/L (15-37) Alanine Aminotransferase (ALT/SGPT) 99 U/L (16-63) Alkaline Phosphatase 210 U/L (46-116) Total Protein 5.7 g/dL (6.4-8.2) Albumin 2.1 g/dL (3.4-5.0) Test 05/15/20 16:32 Glucose (Fingerstick) 301 mg/dL (70-99) Assessment and Plan Assessmemt and Plan Problems Medical Problems: (1) TOMMY (acute kidney injury) Status: Acute (2) COVID-19 Status: Acute (3) Hypoxia Status: Acute Comment Review of Relevant I have reviewed the following items nallely (where applicable) has been applied. Medications: Current Medications Medications (Trade) Dose Ordered Sig/German Route PRN Reason Start Time Stop Time Status Last Admin Dose Admin Remdesivir 100 mg/ Sodium Chloride 230 ml @ 460 mls/hr Q24H IV 05/15/20 12:00 05/18/20 12:29 05/15/20 12:06 Insulin Glargine (Lantus Syringe) 28 unit QHS SQ 05/14/20 21:00 05/14/20 21:21 Insulin Human Lispro (HumaLOG) 20 units 1X ONCE SQ 05/15/20 12:00 05/15/20 12:01 DC 1/23/21 12:05 Doxycycline Hyclate (Vibra-Tab) 100 mg BID PO 05/15/20 13:00 05/15/20 19:55 Justifications for Admission Other Justification ABDI BARRIOS MD May 15, 2020 20:16
[2020-05-15] MEDS ORDERED: IV NORMAL SALINE 500ML BAG 500 ML IV SCH (20:30)
[2020-05-15] MEDS: INSULIN GLARGINE SYRINGE. SQ SCH ×2 (21:00→21:22)
[2020-05-15] MEDS: INSULIN LISPRO 300 UNITS/3 ML VIAL. SQ ONE ×2 (21:00→22:02)
[2020-05-15] MEDS ORDERED: INSULIN GLARGINE SYRINGE. SQ ONE (22:15)
[2020-05-15 23:00] VITALS: BP 181/92
[2020-05-16] MEDS: IV NORMAL SALINE 1000ML BAG 1,000 ML IV SCH ×3 (02:31→22:29)
[2020-05-16 03:00] VITALS: BP 131/84
[2020-05-16 05:38] LABS: BASO % 1 % (0-3); EOS % 0 % (0-3); HEMATOCRIT 37.5 % (39.0-53.0); HEMOGLOBIN 12.3 g/dL (13.0-17.5); LYMPH # 0.4 x10^3/uL (1.0-4.8); LYMPH % 4 % (24-48); MEAN CORPUSCULAR HEMOGLOBIN 30 pg (25-35); MEAN CORPUSCULAR HGB CONC 33 g/dL (31-37); MEAN CORPUSCULAR VOLUME 92 fL (79-100); MONO # 0.8 x10^3/uL (0.0-1.1); MONO % 8 % (0-9); NEUT # 9.3 x10^3/uL (1.8-7.7); NEUT % 88 % (31-73); PLATELET COUNT 317 x10^3/uL (140-400); RED BLOOD COUNT 4.09 x10^6/uL (4.30-5.70); WHITE BLOOD COUNT 10.5 x10^3/uL (4.0-11.0)
[2020-05-16 05:55] LABS: CALCIUM 8.5 mg/dL (8.5-10.1); CREATININE 1.4 mg/dL (0.7-1.3); DIRECT BILIRUBIN 0.1 mg/dL (0.0-0.2); POTASSIUM 4.3 mmol/L (3.5-5.1); TOTAL BILIRUBIN 0.3 mg/dL (0.2-1.0); TOTAL PROTEIN 5.5 g/dL (6.4-8.2)
[2020-05-16 07:00] VITALS: BP 173/99
[2020-05-16] MEDS: INSULIN GLARGINE SYRINGE. SQ SCH ×2 (08:45→16:52)
[2020-05-16] MEDS: ZINC SULFATE 220 MG CAPSULE. PO SCH (08:48)
[2020-05-16] MEDS: INSULIN LISPRO 300 UNITS/3 ML VIAL. SQ SCH ×3 (08:48→16:53)
[2020-05-16] MEDS: PANTOPRAZOLE 40 MG TABLET.DR. PO SCH (08:49)
[2020-05-16] MEDS: VITAMIN B12,B9,B6 COMPLEX 1 TABLET. PO SCH (08:49)
[2020-05-16] MEDS: ASCORBIC ACID 1,000 MG TABLET PO SCH (08:49)
[2020-05-16] MEDS: DOXYCYCLINE HYCLATE 100 MG TABLET PO SCH ×2 (08:49→22:28)
[2020-05-16] MEDS: GABAPENTIN 300 MG CAPSULE. PO SCH ×3 (08:49→22:28)
[2020-05-16] MEDS: ASPIRIN ENTERIC COATED 325 MG TABLET.DR. PO SCH (08:49)
[2020-05-16] MEDS: ATORVASTATIN CALCIUM 10 MG TABLET. PO SCH (08:49)
[2020-05-16] MEDS: AMIODARONE HCL 200 MG TABLET. PO SCH (08:56)
[2020-05-16] MEDS: LACTOBACILLUS RHAMNOSUS GG 1 CAPSULE. PO SCH ×2 (08:57→22:28)
[2020-05-16] MEDS: CETIRIZINE HCL 10 MG TABLET. PO SCH (08:57)
[2020-05-16] MEDS: FUROSEMIDE 40 MG TABLET. PO SCH (08:57)
[2020-05-16] MEDS: ENOXAPARIN 40 MG/0.4 ML SYRINGE. SQ SCH ×2 (08:57→22:28)
[2020-05-16] MEDS: FLUTICASONE/VILANTEROL 200/25 INHALER. INH SCH (08:58)
[2020-05-16] MEDS: DEXAMETHASONE SOD PHOS 4 MG/ML VIAL IVP SCH (08:58)
--- NOTE | 2020-05-16 09:24 | PDOC ---
[employer] PROGRESS NOTE Date of Service DOS: DATE: 05/16/20 TIME: 09:21 Chief Complaint Chief Complaint Assessment/Plan acute COVID-19 infection sepsis dyspnea chest pain, prn meds Hx Ulcerative Colitis, severe malnutrition, serum alb 2.5 acute renal failure, vasomotor, diarrhea from illness and poor PO intake, will hydrate 100hr History of Present Illness History of Present Illness Mr. Kilpatrick is a prisoner at [facility], and has had 17 negative COVID tests until last week, the , was pos, then symptoms started, mostly malaise, weakness, lethargy and anorexia, with poor liquid and PO intake, and now having more marked weakness, and cough and marked chest pain. he takes no meds, UC was improved with colon resection surgery years ago,. has been in [facility] for at least one year. 05/12: Patient seen and evaluated bedside. Currently on room air. Febrile overnight. Had some nausea and vomiting today. Will continue with prednisone 40 mg daily. Will add Rocephin and doxycycline. Will attempt to obtain 6- minute walk to evaluate for oxygen requirement, or room air ABG to look for PO2 less than 55 mmHg. 05/13: Afebrile. Some nausea and vomiting today. Currently breathing on 4 L nasal cannula. Transaminitis noted, but trending down. Will continue to trend and sitter initiating remdesivir when LFTs improved. Continue Rocephin, doxycycline, steroids. Complains of some chest discomfort when he takes deep breath. Will call pharmacy to provide Breo. 05/14: Patient seen and evaluated. Complains of some pleuritic chest pain and chest tenderness. Breathing 40s nasal cannula, afebrile. LFTs improving. Will initiate remdesivir. Discussed risk versus benefit with patient. Will continue to monitor liver function tests. 05/15: Afebrile. Breathing 2 L nasal cannula. LFTs improving, will continue to monitor. Continue steroids, remdesivir, antibiotics. Significant hyperglycemia this evening. Report from RN that patient is sneaking food in between ADA meals discussed with patient in the morning strict ADA diet, especially while on steroids. 05/16: Patient breathing on 3 L nasal cannula. Afebrile. LFTs improving, continue remdesivir. Continue steroids and antibiotics. Discussed better glucose control, not snacking in between meals. Denies fever. nausea, diarrhea. Vitals/I&O Vitals/I&O: Vital Signs Date Time Temp Pulse Resp B/P (MAP) Pulse Ox O2 Delivery O2 Flow Rate FiO2 05/16/20 08:56 69 173/99 05/16/20 07:00 96.8 20 90 Nasal Cannula 3.0 96.8 I & O 05/15/20 05/15/20 05/16/20 15:00 23:00 07:00 Intake Total 300 ml 4039 ml 1240 ml Output Total 1100 ml 2600 ml Balance -800 ml 1439 ml 1240 ml Physical Exam General: Alert, Oriented X3, Cooperative, No acute distress Heart: Regular rate Lungs: Crackles Abdomen: Soft, Other (ostomy to RL, with gas noted, palpable) Extremities: No clubbing, No edema, Normal pulses Skin: No rashes, No breakdown, No significant lesion Labs Labs: Laboratory Tests Test 05/15/20 11:47 05/15/20 16:32 05/16/20 05:00 05/16/20 08:07 Glucose (Fingerstick) 342 mg/dL (70-99) 301 mg/dL (70-99) 277 mg/dL (70-99) White Blood Count 10.5 x10^3/uL (4.0-11.0) Red Blood Count 4.09 x10^6/uL (4.30-5.70) Hemoglobin 12.3 g/dL (13.0-17.5) Hematocrit 37.5 % (39.0-53.0) Mean Corpuscular Volume 92 fL (79-100) Mean Corpuscular Hemoglobin 30 pg (25-35) Mean Corpuscular Hemoglobin Concent 33 g/dL (31-37) Red Cell Distribution Width 16.0 % (11.5-14.5) Platelet Count 317 x10^3/uL (140-400) Neutrophils (%) (Auto) 88 % (31-73) Lymphocytes (%) (Auto) 4 % (24-48) Monocytes (%) (Auto) 8 % (0-9) Eosinophils (%) (Auto) 0 % (0-3) Basophils (%) (Auto) 1 % (0-3) Neutrophils # (Auto) 9.3 x10^3/uL (1.8-7.7) Lymphocytes # (Auto) 0.4 x10^3/uL (1.0-4.8) Monocytes # (Auto) 0.8 x10^3/uL (0.0-1.1) Eosinophils # (Auto) 0.0 x10^3/uL (0.0-0.7) Basophils # (Auto) 0.0 x10^3/uL (0.0-0.2) Sodium Level 139 mmol/L (136-145) Potassium Level 4.3 mmol/L (3.5-5.1) Chloride Level 106 mmol/L (98-107) Carbon Dioxide Level 27 mmol/L (21-32) Anion Gap 6 (6-14) Blood Urea Nitrogen 28 mg/dL (8-26) Creatinine 1.4 mg/dL (0.7-1.3) Estimated GFR (Cockcroft-Gault) 53.0 Glucose Level 315 mg/dL (70-99) Calcium Level 8.5 mg/dL (8.5-10.1) Total Bilirubin 0.3 mg/dL (0.2-1.0) Direct Bilirubin 0.1 mg/dL (0.0-0.2) Aspartate Amino Transf (AST/SGOT) 29 U/L (15-37) Alanine Aminotransferase (ALT/SGPT) 84 U/L (16-63) Alkaline Phosphatase 182 U/L (46-116) Total Protein 5.5 g/dL (6.4-8.2) Albumin 2.0 g/dL (3.4-5.0) Assessment and Plan Assessmemt and Plan Problems Medical Problems: (1) TOMMY (acute kidney injury) Status: Acute (2) COVID-19 Status: Acute (3) Hypoxia Status: Acute Comment Review of Relevant I have reviewed the following items nallely (where applicable) has been applied. Medications: Current Medications Medications (Trade) Dose Ordered Sig/German Route PRN Reason Start Time Stop Time Status Last Admin Dose Admin Remdesivir 100 mg/ Sodium Chloride 230 ml @ 460 mls/hr Q24H IV 05/15/20 12:00 05/18/20 12:29 05/15/20 12:06 Insulin Human Lispro (HumaLOG) 20 units 1X ONCE SQ 05/15/20 12:00 05/15/20 12:01 DC 05/15/20 12:05 Doxycycline Hyclate (Vibra-Tab) 100 mg BID PO 05/15/20 13:00 05/16/20 08:49 Insulin Human Lispro (HumaLOG) 25 units ONCE ONCE SQ 05/15/20 20:30 05/15/20 20:31 DC 05/15/20 22:02 Sodium Chloride 500 ml @ 500 mls/hr Q1H IV 05/15/20 20:30 05/15/20 21:29 DC 05/15/20 21:08 Insulin Glargine (Lantus Syringe) 16 unit BIDBFRMEAL SQ 05/15/20 21:00 05/16/20 08:45 Insulin Human Lispro (HumaLOG) 12 units TIDWMEALS SQ 05/15/20 20:30 05/16/20 08:48 Insulin Glargine (Lantus Syringe) 25 unit ONCE ONCE SQ 05/15/20 22:15 05/15/20 22:16 DC 05/15/20 22:36 Justifications for Admission Other Justification ABDI BARRIOS MD May 16, 2020 09:24
[2020-05-16 11:00] VITALS: BP 164/98
[2020-05-16] MEDS: REMDESIVIR 100mg in NORMAL SALINE 250ML X 4 DAYS IV SCH (12:09)
[2020-05-16] MEDS: cefTRIAXone IV Push 1 GM VIAL. IVP SCH (12:10)
[2020-05-16 15:00] VITALS: BP 148/101
[2020-05-16 19:00] VITALS: BP 138/97
[2020-05-16 23:00] VITALS: BP 176/100
[2020-05-16] MEDS ORDERED: DEXTROSE 50% 25 GM / 50ML DISP.SYRIN. IV PRN (23:00)
[2020-05-16] MEDS ORDERED: INSULIN LISPRO 300 UNITS/3 ML VIAL. SQ ONE (23:15)
[2020-05-17 03:00] VITALS: BP 162/87
[2020-05-17 07:00] VITALS: BP 171/97
[2020-05-17] MEDS: IV NORMAL SALINE 1000ML BAG 1,000 ML IV SCH ×2 (07:00→20:33)
[2020-05-17 07:17] LABS: BASO % 0 % (0-3); EOS % 0 % (0-3); HEMATOCRIT 39.6 % (39.0-53.0); HEMOGLOBIN 12.6 g/dL (13.0-17.5); LYMPH # 0.8 x10^3/uL (1.0-4.8); LYMPH % 6 % (24-48); MEAN CORPUSCULAR HEMOGLOBIN 29 pg (25-35); MEAN CORPUSCULAR HGB CONC 32 g/dL (31-37); MEAN CORPUSCULAR VOLUME 91 fL (79-100); MONO # 1.2 x10^3/uL (0.0-1.1); MONO % 9 % (0-9); NEUT # 10.9 x10^3/uL (1.8-7.7); NEUT % 85 % (31-73); PLATELET COUNT 439 x10^3/uL (140-400); RED BLOOD COUNT 4.35 x10^6/uL (4.30-5.70); RED CELL DISTRIBUTION WIDTH 16.1 % (11.5-14.5); WHITE BLOOD COUNT 12.8 x10^3/uL (4.0-11.0)
[2020-05-17 07:19] LABS: ALBUMIN 2.2 g/dL (3.4-5.0); CALCIUM 8.7 mg/dL (8.5-10.1); CREATININE 1.4 mg/dL (0.7-1.3); DIRECT BILIRUBIN 0.1 mg/dL (0.0-0.2); POTASSIUM 4.2 mmol/L (3.5-5.1); TOTAL BILIRUBIN 0.4 mg/dL (0.2-1.0); TOTAL PROTEIN 5.9 g/dL (6.4-8.2)
[2020-05-17] MEDS: ASCORBIC ACID 1,000 MG TABLET PO SCH (07:39)
[2020-05-17] MEDS: CETIRIZINE HCL 10 MG TABLET. PO SCH (07:39)
[2020-05-17] MEDS: ZINC SULFATE 220 MG CAPSULE. PO SCH (07:39)
[2020-05-17] MEDS: ATORVASTATIN CALCIUM 10 MG TABLET. PO SCH (07:39)
[2020-05-17] MEDS: ASPIRIN ENTERIC COATED 325 MG TABLET.DR. PO SCH (07:39)
[2020-05-17] MEDS: FLUTICASONE/VILANTEROL 200/25 INHALER. INH SCH (07:39)
[2020-05-17] MEDS: VITAMIN B12,B9,B6 COMPLEX 1 TABLET. PO SCH (07:40)
[2020-05-17] MEDS: ENOXAPARIN 40 MG/0.4 ML SYRINGE. SQ SCH ×2 (07:40→20:33)
[2020-05-17] MEDS: PANTOPRAZOLE 40 MG TABLET.DR. PO SCH (07:40)
[2020-05-17] MEDS: FUROSEMIDE 40 MG TABLET. PO SCH (07:40)
[2020-05-17] MEDS: GABAPENTIN 300 MG CAPSULE. PO SCH ×3 (07:40→20:32)
[2020-05-17] MEDS: LACTOBACILLUS RHAMNOSUS GG 1 CAPSULE. PO SCH ×2 (07:40→20:32)
[2020-05-17] MEDS: DOXYCYCLINE HYCLATE 100 MG TABLET PO SCH ×2 (07:40→20:32)
[2020-05-17] MEDS: DEXAMETHASONE SOD PHOS 4 MG/ML VIAL IVP SCH (07:41)
[2020-05-17] MEDS: AMIODARONE HCL 200 MG TABLET. PO SCH (07:41)
[2020-05-17] MEDS: INSULIN LISPRO 300 UNITS/3 ML VIAL. SQ SCH ×7 (07:43→20:30)
[2020-05-17] MEDS: INSULIN GLARGINE SYRINGE. SQ SCH ×2 (09:12→20:29)
--- NOTE | 2020-05-17 10:33 | PDOC ---
PROGRESS NOTES Date of Service: DATE: 05/17/20 TIME: 10:32 Chief Complaint Chief Complaint IMPRESSION acute COVID-19 infection ACUTE HYPOXIC RESPIRATORY FAILURE , O2 SUPPORT AT 3 LITERS NC sepsis dyspnea chest pain, prn meds Hx Ulcerative Colitis, severe malnutrition, serum alb 2.5 acute renal failure, vasomotor, diarrhea from illness and poor PO intake, will hydrate 100hr History of Present Illness History of Present Illness Mr. Kilpatrick is a prisoner at [facility], and has had 17 negative COVID tests until last week, the , was pos, then symptoms started, mostly malaise, weakness, lethargy and anorexia, with poor liquid and PO intake, and now having more marked weakness, and cough and marked chest pain. he takes no meds, UC was improved with colon resection surgery years ago,. has been in [facility] jail for at least one year. 05/12: Patient seen and evaluated bedside. Currently on room air. Febrile overnight. Had some nausea and vomiting today. Will continue with prednisone 40 mg daily. Will add Rocephin and doxycycline. Will attempt to obtain 6- minute walk to evaluate for oxygen requirement, or room air ABG to look for PO2 less than 55 mmHg. 05/13: Afebrile. Some nausea and vomiting today. Currently breathing on 4 L nasal cannula. Transaminitis noted, but trending down. Will continue to trend and sitter initiating remdesivir when LFTs improved. Continue Rocephin, doxycycline, steroids. Complains of some chest discomfort when he takes deep breath. Will call pharmacy to provide Breo. 05/14: Patient seen and evaluated. Complains of some pleuritic chest pain and chest tenderness. Breathing 40s nasal cannula, afebrile. LFTs improving. Will initiate remdesivir. Discussed risk versus benefit with patient. Will continue to monitor liver function tests. 05/15: Afebrile. Breathing 2 L nasal cannula. LFTs improving, will continue to monitor. Continue steroids, remdesivir, antibiotics. Significant hyperglycemia this evening. Report from RN that patient is sneaking food in between ADA meals discussed with patient in the morning strict ADA diet, especially while on steroids. 05/16: Patient breathing on 3 L nasal cannula. Afebrile. LFTs improving, continue remdesivir. Continue steroids and antibiotics. Discussed better glucose control, not snacking in between meals. Denies fever. nausea, diarrhea. 05/17 on 3 liters nc denies fever, D/W RN follow-up CXR could be obtained to ensure that this appropriately decreases to exclude neoplastic causes. Vitals Vitals Vital Signs Date Time Temp Pulse Resp B/P (MAP) Pulse Ox O2 Delivery O2 Flow Rate FiO2 05/17/20 08:03 Nasal Cannula 3.0 05/17/20 07:41 54 162/87 05/17/20 07:00 97.3 16 97 97.3 Physical Exam General: Alert, Oriented X3, Cooperative, No acute distress Heart: Regular rate Lungs: Crackles Abdomen: Soft, Other (ostomy to RL, with gas noted, palpable) Extremities: No clubbing, No edema, Normal pulses Skin: No rashes, No breakdown, No significant lesion Labs LABS INDICATION: Reason: n/v/d, PUI / Spl. Instructions: / History: COMPARISON: None. FINDINGS: Single view of chest obtained. Multifocal opacities within the bilateral lungs including the right upper greater than left upper lung. Interstitial opacities bilaterally. Cardiac mediastinal silhouette is mildly prominent in size. IMPRESSION: * Multifocal opacities in the right greater than left lung. Could be secondary to bilateral infiltrate but follow-up could be obtained to ensure that this appropriately decreases to exclude neoplastic causes. * There is also some interstitial opacities bilaterally which could be from interstitial infiltrate or edema. Electronically signed by: Dahlia Enriquez MD (05/11/2020 7:21 PM) [id number] DICTATED and SIGNED BY: DAHLIA ENRIQUEZ MD DATE: 05/11/20 [id number] Laboratory Tests Test 05/16/20 11:55 05/16/20 16:33 05/16/20 19:44 05/17/20 06:05 Glucose (Fingerstick) 312 mg/dL (70-99) 379 mg/dL (70-99) 413 mg/dL (70-99) White Blood Count 12.8 x10^3/uL (4.0-11.0) Red Blood Count 4.35 x10^6/uL (4.30-5.70) Hemoglobin 12.6 g/dL (13.0-17.5) Hematocrit 39.6 % (39.0-53.0) Mean Corpuscular Volume 91 fL (79-100) Mean Corpuscular Hemoglobin 29 pg (25-35) Mean Corpuscular Hemoglobin Concent 32 g/dL (31-37) Red Cell Distribution Width 16.1 % (11.5-14.5) Platelet Count 439 x10^3/uL (140-400) Neutrophils (%) (Auto) 85 % (31-73) Lymphocytes (%) (Auto) 6 % (24-48) Monocytes (%) (Auto) 9 % (0-9) Eosinophils (%) (Auto) 0 % (0-3) Basophils (%) (Auto) 0 % (0-3) Neutrophils # (Auto) 10.9 x10^3/uL (1.8-7.7) Lymphocytes # (Auto) 0.8 x10^3/uL (1.0-4.8) Monocytes # (Auto) 1.2 x10^3/uL (0.0-1.1) Eosinophils # (Auto) 0.0 x10^3/uL (0.0-0.7) Basophils # (Auto) 0.0 x10^3/uL (0.0-0.2) Test 05/17/20 06:08 05/17/20 07:12 Sodium Level 139 mmol/L (136-145) Potassium Level 4.2 mmol/L (3.5-5.1) Chloride Level 104 mmol/L (98-107) Carbon Dioxide Level 27 mmol/L (21-32) Anion Gap 8 (6-14) Blood Urea Nitrogen 32 mg/dL (8-26) Creatinine 1.4 mg/dL (0.7-1.3) Estimated GFR (Cockcroft-Gault) 53.0 Glucose Level 214 mg/dL (70-99) Calcium Level 8.7 mg/dL (8.5-10.1) Total Bilirubin 0.4 mg/dL (0.2-1.0) Direct Bilirubin 0.1 mg/dL (0.0-0.2) Aspartate Amino Transf (AST/SGOT) 21 U/L (15-37) Alanine Aminotransferase (ALT/SGPT) 79 U/L (16-63) Alkaline Phosphatase 211 U/L (46-116) Total Protein 5.9 g/dL (6.4-8.2) Albumin 2.2 g/dL (3.4-5.0) Glucose (Fingerstick) 209 mg/dL (70-99) Assessment and Plan Assessmemt and Plan Problems Medical Problems: (1) TOMMY (acute kidney injury) Status: Acute (2) COVID-19 Status: Acute (3) Hypoxia Status: Acute Comment Review of Relevant I have reviewed the following items nalleyl (where applicable) has been applied. Labs Laboratory Tests Test 05/15/20 11:47 05/15/20 16:32 05/16/20 05:00 05/16/20 08:07 Glucose (Fingerstick) 342 mg/dL (70-99) 301 mg/dL (70-99) 277 mg/dL (70-99) White Blood Count 10.5 x10^3/uL (4.0-11.0) Red Blood Count 4.09 x10^6/uL (4.30-5.70) Hemoglobin 12.3 g/dL (13.0-17.5) Hematocrit 37.5 % (39.0-53.0) Mean Corpuscular Volume 92 fL (79-100) Mean Corpuscular Hemoglobin 30 pg (25-35) Mean Corpuscular Hemoglobin Concent 33 g/dL (31-37) Red Cell Distribution Width 16.0 % (11.5-14.5) Platelet Count 317 x10^3/uL (140-400) Neutrophils (%) (Auto) 88 % (31-73) Lymphocytes (%) (Auto) 4 % (24-48) Monocytes (%) (Auto) 8 % (0-9) Eosinophils (%) (Auto) 0 % (0-3) Basophils (%) (Auto) 1 % (0-3) Neutrophils # (Auto) 9.3 x10^3/uL (1.8-7.7) Lymphocytes # (Auto) 0.4 x10^3/uL (1.0-4.8) Monocytes # (Auto) 0.8 x10^3/uL (0.0-1.1) Eosinophils # (Auto) 0.0 x10^3/uL (0.0-0.7) Basophils # (Auto) 0.0 x10^3/uL (0.0-0.2) Sodium Level 139 mmol/L (136-145) Potassium Level 4.3 mmol/L (3.5-5.1) Chloride Level 106 mmol/L (98-107) Carbon Dioxide Level 27 mmol/L (21-32) Anion Gap 6 (6-14) Blood Urea Nitrogen 28 mg/dL (8-26) Creatinine 1.4 mg/dL (0.7-1.3) Estimated GFR (Cockcroft-Gault) 53.0 Glucose Level 315 mg/dL (70-99) Calcium Level 8.5 mg/dL (8.5-10.1) Total Bilirubin 0.3 mg/dL (0.2-1.0) Direct Bilirubin 0.1 mg/dL (0.0-0.2) Aspartate Amino Transf (AST/SGOT) 29 U/L (15-37) Alanine Aminotransferase (ALT/SGPT) 84 U/L (16-63) Alkaline Phosphatase 182 U/L (46-116) Total Protein 5.5 g/dL (6.4-8.2) Albumin 2.0 g/dL (3.4-5.0) Test 05/16/20 11:55 05/16/20 16:33 05/16/20 19:44 05/17/20 06:05 Glucose (Fingerstick) 312 mg/dL (70-99) 379 mg/dL (70-99) 413 mg/dL (70-99) White Blood Count 12.8 x10^3/uL (4.0-11.0) Red Blood Count 4.35 x10^6/uL (4.30-5.70) Hemoglobin 12.6 g/dL (13.0-17.5) Hematocrit 39.6 % (39.0-53.0) Mean Corpuscular Volume 91 fL (79-100) Mean Corpuscular Hemoglobin 29 pg (25-35) Mean Corpuscular Hemoglobin Concent 32 g/dL (31-37) Red Cell Distribution Width 16.1 % (11.5-14.5) Platelet Count 439 x10^3/uL (140-400) Neutrophils (%) (Auto) 85 % (31-73) Lymphocytes (%) (Auto) 6 % (24-48) Monocytes (%) (Auto) 9 % (0-9) Eosinophils (%) (Auto) 0 % (0-3) Basophils (%) (Auto) 0 % (0-3) Neutrophils # (Auto) 10.9 x10^3/uL (1.8-7.7) Lymphocytes # (Auto) 0.8 x10^3/uL (1.0-4.8) Monocytes # (Auto) 1.2 x10^3/uL (0.0-1.1) Eosinophils # (Auto) 0.0 x10^3/uL (0.0-0.7) Basophils # (Auto) 0.0 x10^3/uL (0.0-0.2) Test 05/17/20 06:08 05/17/20 07:12 Sodium Level 139 mmol/L (136-145) Potassium Level 4.2 mmol/L (3.5-5.1) Chloride Level 104 mmol/L (98-107) Carbon Dioxide Level 27 mmol/L (21-32) Anion Gap 8 (6-14) Blood Urea Nitrogen 32 mg/dL (8-26) Creatinine 1.4 mg/dL (0.7-1.3) Estimated GFR (Cockcroft-Gault) 53.0 Glucose Level 214 mg/dL (70-99) Calcium Level 8.7 mg/dL (8.5-10.1) Total Bilirubin 0.4 mg/dL (0.2-1.0) Direct Bilirubin 0.1 mg/dL (0.0-0.2) Aspartate Amino Transf (AST/SGOT) 21 U/L (15-37) Alanine Aminotransferase (ALT/SGPT) 79 U/L (16-63) Alkaline Phosphatase 211 U/L (46-116) Total Protein 5.9 g/dL (6.4-8.2) Albumin 2.2 g/dL (3.4-5.0) Glucose (Fingerstick) 209 mg/dL (70-99) Laboratory Tests Test 05/16/20 11:55 05/16/20 16:33 05/16/20 19:44 05/17/20 06:05 Glucose (Fingerstick) 312 mg/dL (70-99) 379 mg/dL (70-99) 413 mg/dL (70-99) White Blood Count 12.8 x10^3/uL (4.0-11.0) Red Blood Count 4.35 x10^6/uL (4.30-5.70) Hemoglobin 12.6 g/dL (13.0-17.5) Hematocrit 39.6 % (39.0-53.0) Mean Corpuscular Volume 91 fL (79-100) Mean Corpuscular Hemoglobin 29 pg (25-35) Mean Corpuscular Hemoglobin Concent 32 g/dL (31-37) Red Cell Distribution Width 16.1 % (11.5-14.5) Platelet Count 439 x10^3/uL (140-400) Neutrophils (%) (Auto) 85 % (31-73) Lymphocytes (%) (Auto) 6 % (24-48) Monocytes (%) (Auto) 9 % (0-9) Eosinophils (%) (Auto) 0 % (0-3) Basophils (%) (Auto) 0 % (0-3) Neutrophils # (Auto) 10.9 x10^3/uL (1.8-7.7) Lymphocytes # (Auto) 0.8 x10^3/uL (1.0-4.8) Monocytes # (Auto) 1.2 x10^3/uL (0.0-1.1) Eosinophils # (Auto) 0.0 x10^3/uL (0.0-0.7) Basophils # (Auto) 0.0 x10^3/uL (0.0-0.2) Test 05/17/20 06:08 05/17/20 07:12 Sodium Level 139 mmol/L (136-145) Potassium Level 4.2 mmol/L (3.5-5.1) Chloride Level 104 mmol/L (98-107) Carbon Dioxide Level 27 mmol/L (21-32) Anion Gap 8 (6-14) Blood Urea Nitrogen 32 mg/dL (8-26) Creatinine 1.4 mg/dL (0.7-1.3) Estimated GFR (Cockcroft-Gault) 53.0 Glucose Level 214 mg/dL (70-99) Calcium Level 8.7 mg/dL (8.5-10.1) Total Bilirubin 0.4 mg/dL (0.2-1.0) Direct Bilirubin 0.1 mg/dL (0.0-0.2) Aspartate Amino Transf (AST/SGOT) 21 U/L (15-37) Alanine Aminotransferase (ALT/SGPT) 79 U/L (16-63) Alkaline Phosphatase 211 U/L (46-116) Total Protein 5.9 g/dL (6.4-8.2) Albumin 2.2 g/dL (3.4-5.0) Glucose (Fingerstick) 209 mg/dL (70-99) Medications Current Medications Acetaminophen (Tylenol) 1,000 mg 1X ONCE PO Last administered on 05/11/20at 19:11; Start 05/11/20 at 19:15; Stop 05/11/20 at 19:16; Status DC Sodium Chloride 1,000 ml @ 1,000 mls/hr 1X ONCE IV Last administered on 05/11/20at 19:39; Start 05/11/20 at 19:45; Stop 05/11/20 at 20:44; Status DC Zinc Sulfate (Orazinc) 220 mg DAILY PO Last administered on 05/17/20at 07:39; Start 05/12/20 at 09:00 Prednisone (Prednisone) 40 mg DAILY PO Last administered on 05/13/20at 08:57; Start 05/12/20 at 09:00; Stop 05/13/20 at 16:34; Status DC Prednisone (Prednisone) 50 mg 1X ONCE PO Last administered on 05/11/20at 21:57; Start 05/11/20 at 21:00; Stop 05/11/20 at 21:01; Status DC Vitamin B Complex (Folbic Tablet) 1 tab DAILY PO Last administered on 05/17/20at 07:40; Start 05/12/20 at 09:00 Ergocalciferol (Vitamin D2) 50,000 unit 1X ONCE PO Last administered on 05/11/20at 21:56; Start 05/11/20 at 21:00; Stop 05/11/20 at 21:01; Status DC Ascorbic Acid (Vitamin C) 1,000 mg DAILY PO Last administered on 05/17/20at 07:39; Start 05/12/20 at 09:00 Enoxaparin Sodium (Lovenox Per Pharmacy Prophylaxis Dosing) 1 each PRN DAILY PRN MC SEE COMMENTS; Start 05/11/20 at 21:00 Sodium Chloride 1,000 ml @ 100 mls/hr Q10H IV Last administered on 05/16/20at 22:29; Start 05/11/20 at 21:00 Enoxaparin Sodium (Lovenox 40mg Syringe) 40 mg BID SQ Last administered on 05/17/20at 07:40; Start 05/11/20 at 21:00 Oxycodone/ Acetaminophen (Percocet 5/325) 1 tab PRN Q4HRS PRN PO SEVERE PAIN 7- 10 Last administered on 05/15/20at 05:45; Start 05/11/20 at 21:00 Insulin Human Lispro (HumaLOG) 0-7 UNITS TIDWMEALS SQ Last administered on 05/14/20at 11:38; Start 05/12/20 at 08:00; Stop 05/14/20 at 16:36; Status DC Dextrose (Dextrose 50%-Water Syringe) 12.5 gm PRN Q15MIN PRN IV SEE COMMENTS; Start 05/11/20 at 21:15; Stop 05/14/20 at 16:36; Status DC Insulin Glargine (Lantus Syringe) 10 unit 1X ONCE SQ Last administered on 05/11/20at 21:59; Start 05/11/20 at 21:15; Stop 05/11/20 at 21:16; Status DC Ondansetron HCl (Zofran) 4 mg PRN Q6HRS PRN IVP NAUSEA/VOMITING Last administered on 05/12/20at 09:45; Start 05/12/20 at 09:30; Stop 05/12/20 at 11:55; Status DC Amiodarone HCl (Cordarone) 200 mg DAILY PO Last administered on 05/17/20at 07:41; Start 05/12/20 at 12:00 Aspirin (Ecotrin) 325 mg DAILY PO Last administered on 05/17/20at 07:39; Start 05/12/20 at 12:00 Acetaminophen/ Aspirin/Caffeine (Excedrin Migraine) 2 tab PRN DAILY PRN PO MIGRAINE HEADACHE; Start 05/12/20 at 11:00 Atorvastatin Calcium (Lipitor) 10 mg DAILY PO Last administered on 05/17/20at 07:39; Start 05/13/20 at 09:00 Cetirizine HCl (ZyrTEC) 10 mg DAILY PO Last administered on 05/17/20at 07:39; Start 05/12/20 at 12:00 Furosemide (Lasix) 40 mg DAILY PO Last administered on 05/17/20at 07:40; Start 05/12/20 at 12:00 Gabapentin (Neurontin) 300 mg TID PO Last administered on 05/17/20at 07:40; Start 05/12/20 at 14:00 Insulin Human Isoph/Insulin Regular (HumuLIN 70-30 VIAL) 20 units QEVNG SQ ; Start 05/12/20 at 18:00; Stop 05/12/20 at 17:31; Status DC Insulin Human Isoph/Insulin Regular (HumuLIN 70-30 VIAL) 30 units QAM SQ Last administered on 05/14/20at 08:33; Start 05/13/20 at 09:00; Stop 05/14/20 at 16:38; Status DC Pantoprazole Sodium (Protonix) 40 mg DAILYAC PO Last administered on 05/17/20at 07:40; Start 05/13/20 at 07:30 Potassium Chloride (Klor-Con) 20 meq DAILY PO ; Start 05/13/20 at 09:00; Stop 05/12/20 at 15:05; Status DC Ondansetron HCl (Zofran Odt) 4 mg PRN Q8HRS PRN PO NAUSEA/VOMITING; Start 04/24 at 11:30 Ceftriaxone Sodium (Rocephin) 1 gm Q24H IVP Last administered on 05/16/20at 12:10; Start 05/12/20 at 12:30 Doxycycline Hyclate 100 mg/ Dextrose 100 ml @ 50 mls/hr Q12HR IV Last administered on 05/15/20at 09:45; Start 05/12/20 at 12:30; Stop 05/15/20 at 13:01; Status DC Ondansetron HCl (Zofran) 4 mg PRN Q4HRS PRN IVP NAUSEA/VOMITING Last administered on 05/12/20at 22:55; Start 05/12/20 at 12:00 Prochlorperazine Edisylate (Compazine) 10 mg PRN Q6HRS PRN IV NAUSEA/VOMITING 2ND CHOICE Last administered on 05/13/20at 12:28; Start 05/12/20 at 13:30 Lactobacillus Rhamnosus (Culturelle) 1 cap BID PO Last administered on 04/24 09/10at 07:40; Start 05/12/20 at 21:00 Insulin Human Isoph/Insulin Regular (HumuLIN 70-30 VIAL) 20 units QPM SQ Last administered on 05/13/20at 17:53; Start 05/12/20 at 18:00; Stop 05/14/20 at 16:36; Status DC Fluticasone/ Vilanterol (Breo Ellipta 200-25 Mcg) 1 puff DAILY INH Last administered on 05/17/20at 07:39; Start 05/13/20 at 16:00 Dexamethasone Sodium Phosphate (Decadron) 6 mg DAILY IVP Last administered on 05/17/20at 07:41; Start 05/14/20 at 09:00 Guaifenesin/ Codeine Phosphate (Robitussin Ac) 5 ml PRN Q6HRS PRN PO COUGH Last administered on 05/15/20at 05:45; Start 05/14/20 at 11:30 Remdesivir 200 mg/ Sodium Chloride 210 ml @ 210 mls/hr 1X ONCE IV Last administered on 05/14/20at 16:08; Start 05/14/20 at 15:30; Stop 05/14/20 at 16:29; Status DC Remdesivir 100 mg/ Sodium Chloride 230 ml @ 460 mls/hr Q24H IV Last administered on 05/16/20at 12:09; Start 05/15/20 at 12:00; Stop 05/18/20 at 12:29 Insulin Human Lispro (HumaLOG) 25 units 1X ONCE SQ Last administered on 05/14/20at 16:49; Start 05/14/20 at 16:30; Stop 05/14/20 at 16:33; Status DC Insulin Glargine (Lantus Syringe) 28 unit QHS SQ Last administered on 05/14/20at 21:21; Start 05/14/20 at 21:00; Stop 05/15/20 at 20:23; Status DC Insulin Human Lispro (HumaLOG) 10 units TIDWMEALS SQ Last administered on 05/15/20at 17:26; Start 05/14/20 at 17:00; Stop 05/15/20 at 20:23; Status DC Dextrose (Dextrose 50%-Water Syringe) 12.5 gm PRN Q15MIN PRN IV SEE COMMENTS; Start 05/14/20 at 16:45 Insulin Human Lispro (HumaLOG) 20 units 1X ONCE SQ Last administered on 05/15/20at 12:05; Start 05/15/20 at 12:00; Stop 05/15/20 at 12:01; Status DC Doxycycline Hyclate (Vibra-Tab) 100 mg BID PO Last administered on 05/17/20at 07:40; Start 05/15/20 at 13:00 Insulin Human Lispro (HumaLOG) 25 units ONCE ONCE SQ Last administered on 05/15/20at 22:02; Start 05/15/20 at 20:30; Stop 05/15/20 at 20:31; Status DC Sodium Chloride 500 ml @ 500 mls/hr Q1H IV Last administered on 05/15/20at 21:08; Start 05/15/20 at 20:30; Stop 05/15/20 at 21:29; Status DC Insulin Glargine (Lantus Syringe) 16 unit BIDBFRMEAL SQ Last administered on 05/16/20at 16:52; Start 05/15/20 at 21:00; Stop 05/16/20 at 23:03; Status DC Insulin Human Lispro (HumaLOG) 12 units TIDWMEALS SQ Last administered on 05/17/20at 07:44; Start 05/15/20 at 20:30 Insulin Glargine (Lantus Syringe) 25 unit ONCE ONCE SQ Last administered on 05/15/20at 22:36; Start 05/15/20 at 22:15; Stop 05/15/20 at 22:16; Status DC Insulin Glargine (Lantus Syringe) 20 unit BID SQ Last administered on 05/17/20at 09:12; Start 05/17/20 at 09:00 Insulin Human Lispro (HumaLOG) 0-9 UNITS TIDACHC SQ Last administered on 05/17/20at 07:43; Start 05/17/20 at 07:30 Dextrose (Dextrose 50%-Water Syringe) 12.5 gm PRN Q15MIN PRN IV SEE COMMENTS; Start 05/16/20 at 23:00 Insulin Human Lispro (HumaLOG) 19 units 1X ONCE SQ Last administered on 05/16/20at 23:59; Start 05/16/20 at 23:15; Stop 05/16/20 at 23:19; Status DC Active Scripts Active Reported Zofran (Ondansetron Hcl) 4 Mg Tablet 1 Tab PO TID PRN PRN Protonix (Pantoprazole Sodium) 40 Mg Tablet.dr 40 Mg PO DAILYAC Potassium Chloride (Potassium Chloride) 20 Meq Tablet.er 20 Meq PO DAILY Lasix (Furosemide) 40 Mg Tablet 1 Tab PO DAILY 30 Days Humulin 70-30 Vial (Hum Insulin Nph/Reg Insulin Hm) 100 Unit/1 Ml Vial 30 Unit SQ QAM Humulin 70-30 Vial (Hum Insulin Nph/Reg Insulin Hm) 100 Unit/1 Ml Vial 20 Unit SQ QEVNG Gabapentin (Gabapentin) 300 Mg Capsule 300 Mg PO TID Excedrin Migraine Caplet (Aspirin/Acetaminophen/Caffeine) 1 Each Tablet 2 Each PO DAILY PRN Ecotrin (Aspirin) 325 Mg Tablet.dr 325 Mg PO DAILY Cetirizine Hcl 10 Mg Tablet 1 Tab PO DAILY Atorvastatin Calcium 10 Mg Tablet 1 Tab PO DAILY Amiodarone Hcl 200 Mg Tablet 1 Tab PO DAILY Vitals/I & O Vital Sign - Last 24 Hours 05/16/20 05/16/20 05/16/20 05/16/20 11:00 15:00 19:00 20:00 Temp 97.1 97.6 97.5 97.1 97.6 97.5 Pulse 71 90 60 Resp 20 22 18 B/P (MAP) 164/98 (120) 148/101 (117) 138/97 (111) Pulse Ox 94 98 97 O2 Delivery Nasal Cannula Nasal Cannula Nasal Cannula Nasal Cannula O2 Flow Rate 3.0 3.0 3.0 5.0 05/16/20 05/17/20 05/17/20 05/17/20 23:00 03:00 07:00 07:41 Temp 97.3 96.6 97.3 97.3 96.6 97.3 Pulse 64 54 59 54 Resp 18 18 16 B/P (MAP) 176/100 (125) 162/87 (112) 171/97 (121) 162/87 Pulse Ox 97 97 97 O2 Delivery Nasal Cannula Nasal Cannula Nasal Cannula O2 Flow Rate 3.0 3.0 3.0 05/17/20 08:03 O2 Delivery Nasal Cannula O2 Flow Rate 3.0 Intake and Output 05/16/20 05/16/20 05/17/20 15:00 23:00 07:00 Intake Total 1000 ml 500 ml Output Total 500 ml 600 ml 1400 ml Balance 500 ml -100 ml -1400 ml Justicifation of Admission Dx: Justifications for Admission: Justification of Admission Dx: Yes Comminuty Aquired Pneumonia: Hypoxemia NUNU VALDEZ MD May 17, 2020 10:33
[2020-05-17 10:37] VITALS: BP 152/90
[2020-05-17] MEDS: cefTRIAXone IV Push 1 GM VIAL. IVP SCH (11:37)
[2020-05-17] MEDS: REMDESIVIR 100mg in NORMAL SALINE 250ML X 4 DAYS IV SCH (11:37)
[2020-05-17] MEDS: PROCHLORPERAZINE 10 MG/2 ML VIAL. IV PRN (14:32)
[2020-05-17 14:49] VITALS: BP 151/98
[2020-05-17] MEDS ORDERED: INSULIN LISPRO 300 UNITS/3 ML VIAL. SQ ONE (17:00)
--- NOTE | 2020-05-17 17:02 | RAD ---
Exam performed: One view chest HISTORY: Pneumonia. DATE OF SERVICE: 05/17/2020. COMPARISON: Single view chest from 05/11/2020. Single AP upright portable view chest findings: Heart size is stable. Multifocal linear and airspace opacities are seen in both lungs predominantly i n the upper lobes, somewhat increased since prior study. There is no pleural effusion or pneumothorax . IMPRESSION: Multifocal opacities in both lungs appear somewhat increased. Electronically signed by: Linda Gibbs MD (05/17/2020 5:00 PM) [id number]
[2020-05-17 19:00] VITALS: BP 125/81
[2020-05-17 23:00] VITALS: BP 133/84
[2020-05-18 03:00] VITALS: BP 139/82
--- NOTE | 2020-05-18 06:49 | PDOC ---
PROGRESS NOTES Date of Service: DATE: 05/18/20 TIME: 06:49 Chief Complaint Chief Complaint HOSPITAL D/C [facility] DATE OF ADMIT 05-11-20 DATE OF D/C 05-18-20 D/C CONDITION GOOD COMPLICATIONS NONE PROGNOSIS GOOD F/U [facility] PHYSICIAN TODAY DISCHARGE DX acute COVID-19 infection ACUTE HYPOXIC RESPIRATORY FAILURE , O2 SUPPORT AT 3 LITERS NC sepsis DIABETES, NONCOMPLIANT WITH ADA DIET AMA dyspnea chest pain, prn meds Hx Ulcerative Colitis, severe malnutrition, serum alb 2.5 acute renal INJURY, VASOMOROR NEPHROPATHY vasomotor, diarrhea from illness and poor PO intake, will hydrate 100hr D/C PLANNING 34 MIN History of Present Illness History of Present Illness Mr. Kilpatrick is a prisoner at [facility], and has had 17 negative COVID tests until last week, the , was pos, then symptoms started, mostly malaise, weakness, lethargy and anorexia, with poor liquid and PO intake, and now having more marked weakness, and cough and marked chest pain. he takes no meds, UC was improved with colon resection surgery years ago,. has been in [facility] for at least one year. 05/12: Patient seen and evaluated bedside. Currently on room air. Febrile overnight. Had some nausea and vomiting today. Will continue with prednisone 40 mg daily. Will add Rocephin and doxycycline. Will attempt to obtain 6- minute walk to evaluate for oxygen requirement, or room air ABG to look for PO2 less than 55 mmHg. 05/13: Afebrile. Some nausea and vomiting today. Currently breathing on 4 L nasal cannula. Transaminitis noted, but trending down. Will continue to trend and sitter initiating remdesivir when LFTs improved. Continue Rocephin, doxycycline, steroids. Complains of some chest discomfort when he takes deep breath. Will call pharmacy to provide Breo. 05/14: Patient seen and evaluated. Complains of some pleuritic chest pain and chest tenderness. Breathing 40s nasal cannula, afebrile. LFTs improving. Will initiate remdesivir. Discussed risk versus benefit with patient. Will continue to monitor liver function tests. 05/15: Afebrile. Breathing 2 L nasal cannula. LFTs improving, will continue to monitor. Continue steroids, remdesivir, antibiotics. Significant hyperglycemia this evening. Report from RN that patient is sneaking food in between ADA meals discussed with patient in the morning strict ADA diet, especially while on steroids. 05/16: Patient breathing on 3 L nasal cannula. Afebrile. LFTs improving, continue remdesivir. Continue steroids and antibiotics. Discussed better glucose control, not snacking in between meals. Denies fever. nausea, diarrhea. 05/17 on 3 liters nc denies fever, D/W RN follow-up CXR could be obtained to ensure that this appropriately decreases to exclude neoplastic causes. 05/18 D/C TODAY TO [facility] Vitals Vitals Vital Signs Date Time Temp Pulse Resp B/P (MAP) Pulse Ox O2 Delivery O2 Flow Rate FiO2 05/18/20 03:00 96.6 60 18 139/82 (101) 95 Nasal Cannula 3.0 96.6 Physical Exam General: Alert, Oriented X3, Cooperative, No acute distress Heart: Regular rate Lungs: Crackles Abdomen: Soft, Other (ostomy to RL, with gas noted, palpable) Extremities: No clubbing, No edema, Normal pulses Skin: No rashes, No breakdown, No significant lesion Labs LABS Exam performed: One view chest HISTORY: Pneumonia. DATE OF SERVICE: 05/17/2020. COMPARISON: Single view chest from 05/11/2020. Single AP upright portable view chest findings: Heart size is stable. Multifocal linear and airspace opacities are seen in both lungs predominantly in the upper lobes, somewhat increased since prior study. There is no pleural effusion or pneumothorax. IMPRESSION: Multifocal opacities in both lungs appear somewhat increased. Electronically signed by: Caron Gibbs MD (05/17/2020 5:00 PM) [id number] DICTATED and SIGNED BY: CARON GIBBS MD DATE: 05/17/20 [id number] Laboratory Tests Test 05/17/20 07:12 05/17/20 11:10 05/17/20 16:35 05/17/20 20:00 Glucose (Fingerstick) 209 mg/dL (70-99) 277 mg/dL (70-99) 381 mg/dL (70-99) 331 mg/dL (70-99) Assessment and Plan Assessmemt and Plan Problems Medical Problems: (1) TOMMY (acute kidney injury) Status: Acute (2) COVID-19 Status: Acute (3) Hypoxia Status: Acute Comment Review of Relevant I have reviewed the following items nallely (where applicable) has been applied. Labs Laboratory Tests Test 05/16/20 08:07 05/16/20 11:55 05/16/20 16:33 05/16/20 19:44 Glucose (Fingerstick) 277 mg/dL (70-99) 312 mg/dL (70-99) 379 mg/dL (70-99) 413 mg/dL (70-99) Test 05/17/20 06:05 05/17/20 06:08 05/17/20 07:12 05/17/20 11:10 White Blood Count 12.8 x10^3/uL (4.0-11.0) Red Blood Count 4.35 x10^6/uL (4.30-5.70) Hemoglobin 12.6 g/dL (13.0-17.5) Hematocrit 39.6 % (39.0-53.0) Mean Corpuscular Volume 91 fL (79-100) Mean Corpuscular Hemoglobin 29 pg (25-35) Mean Corpuscular Hemoglobin Concent 32 g/dL (31-37) Red Cell Distribution Width 16.1 % (11.5-14.5) Platelet Count 439 x10^3/uL (140-400) Neutrophils (%) (Auto) 85 % (31-73) Lymphocytes (%) (Auto) 6 % (24-48) Monocytes (%) (Auto) 9 % (0-9) Eosinophils (%) (Auto) 0 % (0-3) Basophils (%) (Auto) 0 % (0-3) Neutrophils # (Auto) 10.9 x10^3/uL (1.8-7.7) Lymphocytes # (Auto) 0.8 x10^3/uL (1.0-4.8) Monocytes # (Auto) 1.2 x10^3/uL (0.0-1.1) Eosinophils # (Auto) 0.0 x10^3/uL (0.0-0.7) Basophils # (Auto) 0.0 x10^3/uL (0.0-0.2) Sodium Level 139 mmol/L (136-145) Potassium Level 4.2 mmol/L (3.5-5.1) Chloride Level 104 mmol/L (98-107) Carbon Dioxide Level 27 mmol/L (21-32) Anion Gap 8 (6-14) Blood Urea Nitrogen 32 mg/dL (8-26) Creatinine 1.4 mg/dL (0.7-1.3) Estimated GFR (Cockcroft-Gault) 53.0 Glucose Level 214 mg/dL (70-99) Calcium Level 8.7 mg/dL (8.5-10.1) Total Bilirubin 0.4 mg/dL (0.2-1.0) Direct Bilirubin 0.1 mg/dL (0.0-0.2) Aspartate Amino Transf (AST/SGOT) 21 U/L (15-37) Alanine Aminotransferase (ALT/SGPT) 79 U/L (16-63) Alkaline Phosphatase 211 U/L (46-116) Total Protein 5.9 g/dL (6.4-8.2) Albumin 2.2 g/dL (3.4-5.0) Glucose (Fingerstick) 209 mg/dL (70-99) 277 mg/dL (70-99) Test 05/17/20 16:35 05/17/20 20:00 Glucose (Fingerstick) 381 mg/dL (70-99) 331 mg/dL (70-99) Laboratory Tests Test 05/17/20 07:12 05/17/20 11:10 05/17/20 16:35 05/17/20 20:00 Glucose (Fingerstick) 209 mg/dL (70-99) 277 mg/dL (70-99) 381 mg/dL (70-99) 331 mg/dL (70-99) Medications Current Medications Acetaminophen (Tylenol) 1,000 mg 1X ONCE PO Last administered on 05/11/20at 19:11; Start 05/11/20 at 19:15; Stop 05/11/20 at 19:16; Status DC Sodium Chloride 1,000 ml @ 1,000 mls/hr 1X ONCE IV Last administered on 05/11/20at 19:39; Start 05/11/20 at 19:45; Stop 05/11/20 at 20:44; Status DC Zinc Sulfate (Orazinc) 220 mg DAILY PO Last administered on 05/17/20at 07:39; Start 05/12/20 at 09:00 Prednisone (Prednisone) 40 mg DAILY PO Last administered on 05/13/20at 08:57; Start 05/12/20 at 09:00; Stop 05/13/20 at 16:34; Status DC Prednisone (Prednisone) 50 mg 1X ONCE PO Last administered on 05/11/20at 21:57; Start 05/11/20 at 21:00; Stop 05/11/20 at 21:01; Status DC Vitamin B Complex (Folbic Tablet) 1 tab DAILY PO Last administered on 05/17/20at 07:40; Start 05/12/20 at 09:00 Ergocalciferol (Vitamin D2) 50,000 unit 1X ONCE PO Last administered on 05/11/20at 21:56; Start 05/11/20 at 21:00; Stop 05/11/20 at 21:01; Status DC Ascorbic Acid (Vitamin C) 1,000 mg DAILY PO Last administered on 05/17/20at 07:39; Start 05/12/20 at 09:00 Enoxaparin Sodium (Lovenox Per Pharmacy Prophylaxis Dosing) 1 each PRN DAILY PRN MC SEE COMMENTS; Start 05/11/20 at 21:00 Sodium Chloride 1,000 ml @ 100 mls/hr Q10H IV Last administered on 05/17/20at 20:33; Start 05/11/20 at 21:00 Enoxaparin Sodium (Lovenox 40mg Syringe) 40 mg BID SQ Last administered on 05/17/20at 20:33; Start 05/11/20 at 21:00 Oxycodone/ Acetaminophen (Percocet 5/325) 1 tab PRN Q4HRS PRN PO SEVERE PAIN 7- 10 Last administered on 05/15/20at 05:45; Start 05/11/20 at 21:00 Insulin Human Lispro (HumaLOG) 0-7 UNITS TIDWMEALS SQ Last administered on 05/14/20at 11:38; Start 05/12/20 at 08:00; Stop 05/14/20 at 16:36; Status DC Dextrose (Dextrose 50%-Water Syringe) 12.5 gm PRN Q15MIN PRN IV SEE COMMENTS; Start 05/11/20 at 21:15; Stop 05/14/20 at 16:36; Status DC Insulin Glargine (Lantus Syringe) 10 unit 1X ONCE SQ Last administered on 05/11/20at 21:59; Start 05/11/20 at 21:15; Stop 05/11/20 at 21:16; Status DC Ondansetron HCl (Zofran) 4 mg PRN Q6HRS PRN IVP NAUSEA/VOMITING Last administered on 05/12/20at 09:45; Start 05/12/20 at 09:30; Stop 05/12/20 at 11:55; Status DC Amiodarone HCl (Cordarone) 200 mg DAILY PO Last administered on 05/17/20at 07:41; Start 05/12/20 at 12:00 Aspirin (Ecotrin) 325 mg DAILY PO Last administered on 05/17/20at 07:39; Start 05/12/20 at 12:00 Acetaminophen/ Aspirin/Caffeine (Excedrin Migraine) 2 tab PRN DAILY PRN PO MIGRAINE HEADACHE; Start 05/12/20 at 11:00 Atorvastatin Calcium (Lipitor) 10 mg DAILY PO Last administered on 05/17/20at 07:39; Start 05/13/20 at 09:00 Cetirizine HCl (ZyrTEC) 10 mg DAILY PO Last administered on 05/17/20at 07:39; Start 05/12/20 at 12:00 Furosemide (Lasix) 40 mg DAILY PO Last administered on 05/17/20at 07:40; Start 05/12/20 at 12:00 Gabapentin (Neurontin) 300 mg TID PO Last administered on 05/17/20at 20:32; Start 05/12/20 at 14:00 Insulin Human Isoph/Insulin Regular (HumuLIN 70-30 VIAL) 20 units QEVNG SQ ; Start 05/12/20 at 18:00; Stop 05/12/20 at 17:31; Status DC Insulin Human Isoph/Insulin Regular (HumuLIN 70-30 VIAL) 30 units QAM SQ Last administered on 05/14/20at 08:33; Start 05/13/20 at 09:00; Stop 05/14/20 at 16:38; Status DC Pantoprazole Sodium (Protonix) 40 mg DAILYAC PO Last administered on 05/17/20 07:40; Start 05/13/20 at 07:30 Potassium Chloride (Klor-Con) 20 meq DAILY PO ; Start 05/13/20 at 09:00; Stop 05/12/20 at 15:05; Status DC Ondansetron HCl (Zofran Odt) 4 mg PRN Q8HRS PRN PO NAUSEA/VOMITING; Start 05/12/20 at 11:30 Ceftriaxone Sodium (Rocephin) 1 gm Q24H IVP Last administered on 05/17/20at 11:37; Start 05/12/20 at 12:30 Doxycycline Hyclate 100 mg/ Dextrose 100 ml @ 50 mls/hr Q12HR IV Last administered on 05/15/20at 09:45; Start 05/12/20 at 12:30; Stop 05/15/20 at 13:01; Status DC Ondansetron HCl (Zofran) 4 mg PRN Q4HRS PRN IVP NAUSEA/VOMITING Last administered on 05/12/20at 22:55; Start 05/12/20 at 12:00 Prochlorperazine Edisylate (Compazine) 10 mg PRN Q6HRS PRN IV NAUSEA/VOMITING 2ND CHOICE Last administered on 05/17/20at 14:32; Start 05/12/20 at 13:30 Lactobacillus Rhamnosus (Culturelle) 1 cap BID PO Last administered on 05/17/20 t 20:32; Start 05/12/20 at 21:00 Insulin Human Isoph/Insulin Regular (HumuLIN 70-30 VIAL) 20 units QPM SQ Last administered on 05/13/20at 17:53; Start 05/12/20 at 18:00; Stop 05/14/20 at 16:36; Status DC Fluticasone/ Vilanterol (Breo Ellipta 200-25 Mcg) 1 puff DAILY INH Last administered on 05/17/20 07:39; Start 05/13/20 at 16:00 Dexamethasone Sodium Phosphate (Decadron) 6 mg DAILY IVP Last administered on 05/17/20 07:41; Start 05/14/20 at 09:00 Guaifenesin/ Codeine Phosphate (Robitussin Ac) 5 ml PRN Q6HRS PRN PO COUGH Last administered on 05/15/20at 05:45; Start 05/14/20 at 11:30 Remdesivir 200 mg/ Sodium Chloride 210 ml @ 210 mls/hr 1X ONCE IV Last administered on 05/14/20at 16:08; Start 05/14/20 at 15:30; Stop 05/14/20 at 16:29; Status DC Remdesivir 100 mg/ Sodium Chloride 230 ml @ 460 mls/hr Q24H IV Last administered on 05/17/20at 11:37; Start 05/15/20 at 12:00; Stop 05/18/20 at 12:29 Insulin Human Lispro (HumaLOG) 25 units 1X ONCE SQ Last administered on 05/14/20at 16:49; Start 05/14/20 at 16:30; Stop 05/14/20 at 16:33; Status DC Insulin Glargine (Lantus Syringe) 28 unit QHS SQ Last administered on 05/14/20at 21:21; Start 05/14/20 at 21:00; Stop 05/15/20 at 20:23; Status DC Insulin Human Lispro (HumaLOG) 10 units TIDWMEALS SQ Last administered on 05/15/20at 17:26; Start 05/14/20 at 17:00; Stop 05/15/20 at 20:23; Status DC Dextrose (Dextrose 50%-Water Syringe) 12.5 gm PRN Q15MIN PRN IV SEE COMMENTS; Start 05/14/20 at 16:45 Insulin Human Lispro (HumaLOG) 20 units 1X ONCE SQ Last administered on 05/15/20at 12:05; Start 05/15/20 at 12:00; Stop 05/15/20 at 12:01; Status DC Doxycycline Hyclate (Vibra-Tab) 100 mg BID PO Last administered on 05/17/20at 20:32; Start 05/15/20 at 13:00 Insulin Human Lispro (HumaLOG) 25 units ONCE ONCE SQ Last administered on 05/15/20at 22:02; Start 05/15/20 at 20:30; Stop 05/15/20 at 20:31; Status DC Sodium Chloride 500 ml @ 500 mls/hr Q1H IV Last administered on 05/15/20at 21:08; Start 05/15/20 at 20:30; Stop 05/15/20 at 21:29; Status DC Insulin Glargine (Lantus Syringe) 16 unit BIDBFRMEAL SQ Last administered on 05/16/20at 16:52; Start 05/15/20 at 21:00; Stop 05/16/20 at 23:03; Status DC Insulin Human Lispro (HumaLOG) 12 units TIDWMEALS SQ Last administered on 05/17/20at 17:08; Start 05/15/20 at 20:30 Insulin Glargine (Lantus Syringe) 25 unit ONCE ONCE SQ Last administered on 05/15/20at 22:36; Start 05/15/20 at 22:15; Stop 05/15/20 at 22:16; Status DC Insulin Glargine (Lantus Syringe) 20 unit BID SQ Last administered on 05/17/20at 20:29; Start 05/17/20 at 09:00 Insulin Human Lispro (HumaLOG) 0-9 UNITS TIDACHC SQ Last administered on 05/17/20at 20:30; Start 05/17/20 at 07:30 Dextrose (Dextrose 50%-Water Syringe) 12.5 gm PRN Q15MIN PRN IV SEE COMMENTS; Start 05/16/20 at 23:00 Insulin Human Lispro (HumaLOG) 19 units 1X ONCE SQ Last administered on 05/16/20at 23:59; Start 05/16/20 at 23:15; Stop 05/16/20 at 23:19; Status DC Insulin Human Lispro (HumaLOG) 8 units 1X ONCE SQ Last administered on 05/17/20at 17:08; Start 05/17/20 at 17:00; Stop 05/17/20 at 17:01; Status DC Active Scripts Active Reported Zofran (Ondansetron Hcl) 4 Mg Tablet 1 Tab PO TID PRN PRN Protonix (Pantoprazole Sodium) 40 Mg Tablet.dr 40 Mg PO DAILYAC Potassium Chloride (Potassium Chloride) 20 Meq Tablet.er 20 Meq PO DAILY Lasix (Furosemide) 40 Mg Tablet 1 Tab PO DAILY 30 Days Humulin 70-30 Vial (Hum Insulin Nph/Reg Insulin Hm) 100 Unit/1 Ml Vial 30 Unit SQ QAM Humulin 70-30 Vial (Hum Insulin Nph/Reg Insulin Hm) 100 Unit/1 Ml Vial 20 Unit SQ QEVNG Gabapentin (Gabapentin) 300 Mg Capsule 300 Mg PO TID Excedrin Migraine Caplet (Aspirin/Acetaminophen/Caffeine) 1 Each Tablet 2 Each PO DAILY PRN Ecotrin (Aspirin) 325 Mg Tablet.dr 325 Mg PO DAILY Cetirizine Hcl 10 Mg Tablet 1 Tab PO DAILY Atorvastatin Calcium 10 Mg Tablet 1 Tab PO DAILY Amiodarone Hcl 200 Mg Tablet 1 Tab PO DAILY Vitals/I & O Vital Sign - Last 24 Hours 05/17/20 05/17/20 05/17/20 05/17/20 07:00 07:41 08:03 10:37 Temp 97.3 98.1 97.3 98.1 Pulse 59 54 67 Resp 16 20 B/P (MAP) 171/97 (121) 162/87 152/90 (110) Pulse Ox 97 95 O2 Delivery Nasal Cannula Nasal Cannula Nasal Cannula O2 Flow Rate 3.0 3.0 3.0 05/17/20 05/17/20 05/17/20 05/17/20 14:49 19:00 20:00 23:00 Temp 97.2 96.8 98.1 97.2 96.8 98.1 Pulse 85 76 87 Resp 20 20 18 B/P (MAP) 151/98 (115) 125/81 (96) 133/84 (100) Pulse Ox 93 95 96 O2 Delivery Nasal Cannula Nasal Cannula Nasal Cannula Nasal Cannula O2 Flow Rate 3.0 3.0 3.0 3.0 05/18/20 03:00 Temp 96.6 96.6 Pulse 60 Resp 18 B/P (MAP) 139/82 (101) Pulse Ox 95 O2 Delivery Nasal Cannula O2 Flow Rate 3.0 Intake and Output 05/17/20 05/17/20 05/18/20 15:00 23:00 07:00 Intake Total 360 ml 360 ml 600 ml Output Total 500 ml 1025 ml 1775 ml Balance -140 ml -665 ml -1175 ml Justicifation of Admission Dx: Justifications for Admission: Justification of Admission Dx: Yes Comminuty Aquired Pneumonia: Hypoxemia NUNU VALDEZ MD May 18, 2020 06:49
[2020-05-18 07:00] VITALS: BP 136/90
[2020-05-18] MEDS: IV NORMAL SALINE 1000ML BAG 1,000 ML IV SCH ×3 (08:23→23:00)
[2020-05-18] MEDS: FLUTICASONE/VILANTEROL 200/25 INHALER. INH SCH (08:23)
[2020-05-18] MEDS: INSULIN LISPRO 300 UNITS/3 ML VIAL. SQ SCH ×7 (08:24→22:34)
[2020-05-18] MEDS: LACTOBACILLUS RHAMNOSUS GG 1 CAPSULE. PO SCH ×2 (08:25→20:27)
[2020-05-18] MEDS: PANTOPRAZOLE 40 MG TABLET.DR. PO SCH (08:25)
[2020-05-18] MEDS: VITAMIN B12,B9,B6 COMPLEX 1 TABLET. PO SCH (08:25)
[2020-05-18] MEDS: ZINC SULFATE 220 MG CAPSULE. PO SCH (08:25)
[2020-05-18] MEDS: ENOXAPARIN 40 MG/0.4 ML SYRINGE. SQ SCH ×2 (08:25→20:27)
[2020-05-18] MEDS: ASPIRIN ENTERIC COATED 325 MG TABLET.DR. PO SCH (08:25)
[2020-05-18] MEDS: FUROSEMIDE 40 MG TABLET. PO SCH (08:26)
[2020-05-18] MEDS: AMIODARONE HCL 200 MG TABLET. PO SCH (08:26)
[2020-05-18] MEDS: ATORVASTATIN CALCIUM 10 MG TABLET. PO SCH (08:26)
[2020-05-18] MEDS: ASCORBIC ACID 1,000 MG TABLET PO SCH (08:26)
[2020-05-18] MEDS: DOXYCYCLINE HYCLATE 100 MG TABLET PO SCH ×2 (08:26→20:28)
[2020-05-18] MEDS: GABAPENTIN 300 MG CAPSULE. PO SCH ×3 (08:26→20:27)
[2020-05-18] MEDS: CETIRIZINE HCL 10 MG TABLET. PO SCH (08:26)
[2020-05-18] MEDS: DEXAMETHASONE SOD PHOS 4 MG/ML VIAL IVP SCH (08:27)
[2020-05-18 08:30] LABS: BASO % 0 % (0-3); EOS % 0 % (0-3); HEMATOCRIT 40.2 % (39.0-53.0); HEMOGLOBIN 12.9 g/dL (13.0-17.5); LYMPH # 0.7 x10^3/uL (1.0-4.8); LYMPH % 6 % (24-48); MEAN CORPUSCULAR HEMOGLOBIN 29 pg (25-35); MEAN CORPUSCULAR HGB CONC 32 g/dL (31-37); MEAN CORPUSCULAR VOLUME 91 fL (79-100); MONO % 9 % (0-9); NEUT # 9.8 x10^3/uL (1.8-7.7); NEUT % 85 % (31-73); PLATELET COUNT 475 x10^3/uL (140-400); RED CELL DISTRIBUTION WIDTH 16.2 % (11.5-14.5); WHITE BLOOD COUNT 11.5 x10^3/uL (4.0-11.0)
[2020-05-18 09:08] LABS: ALBUMIN 2.1 g/dL (3.4-5.0); CALCIUM 8.2 mg/dL (8.5-10.1); CREATININE 1.4 mg/dL (0.7-1.3); DIRECT BILIRUBIN 0.2 mg/dL (0.0-0.2); POTASSIUM 4.5 mmol/L (3.5-5.1); TOTAL BILIRUBIN 0.4 mg/dL (0.2-1.0); TOTAL PROTEIN 5.8 g/dL (6.4-8.2)
[2020-05-18] MEDS: INSULIN GLARGINE SYRINGE. SQ SCH ×2 (09:25→22:36)
[2020-05-18 11:00] VITALS: BP 142/97
[2020-05-18] MEDS ORDERED: INSULIN LISPRO 300 UNITS/3 ML VIAL. SQ ONE ×2 (11:15→13:30)
[2020-05-18] MEDS: cefTRIAXone IV Push 1 GM VIAL. IVP SCH (11:19)
[2020-05-18] MEDS: REMDESIVIR 100mg in NORMAL SALINE 250ML X 4 DAYS IV SCH (11:19)
--- NOTE | 2020-05-18 12:27 | PDOC3 ---
Discharge Summary Date of Admission: May 11, 2020 Date of Discharge: May 18, 2020 Follow-Up: 1-2 days Admitting Diagnosis comment: Chief Complaint Chief Complaint HOSPITAL D/C SUMMARY [facility] DATE OF ADMIT 05-11-20 DATE OF D/C 05-18-20 D/C CONDITION GOOD COMPLICATIONS NONE PROGNOSIS GOOD F/U LONG TERM PHYSICIAN TODAY DISCHARGE DX acute COVID-19 infection ACUTE HYPOXIC RESPIRATORY FAILURE , O2 SUPPORT AT 3 LITERS NC sepsis DIABETES, NONCOMPLIANT WITH ADA DIET AMA dyspnea chest pain, prn meds Hx Ulcerative Colitis, severe malnutrition, serum alb 2.5 acute renal INJURY, VASOMOROR NEPHROPATHY vasomotor, diarrhea from illness and poor PO intake, will hydrate 100hr D/C PLANNING 34 MIN History of Present Illness History of Present Illness Mr. Kilpatrick is a prisoner at [facility], and has had 17 negative COVID tests until last week, the , was pos, then symptoms started, mostly malaise, weakness, lethargy and anorexia, with poor liquid and PO intake, WAS having more marked weakness, and cough and marked chest pain. he takes no meds, UC was improved with colon resection surgery years ago,. has been in [facility] for at least one year. 05/12: Patient seen and evaluated bedside. Currently on room air. Febrile overnight. Had some nausea and vomiting today. Will continue with prednisone 40 mg daily. Will add Rocephin and doxycycline. Will attempt to obtain 6- minute walk to evaluate for oxygen requirement, or room air ABG to look for PO2 less than 55 mmHg. 05/13: Afebrile. Some nausea and vomiting today. Currently breathing on 4 L nasal cannula. Transaminitis noted, but trending down. Will continue to trend and sitter initiating remdesivir when LFTs improved. Continue Rocephin, doxycycline, steroids. Complains of some chest discomfort when he takes deep breath. Will call pharmacy to provide Breo. 05/14: Patient seen and evaluated. Complains of some pleuritic chest pain and chest tenderness. Breathing 40s nasal cannula, afebrile. LFTs improving. Will initiate remdesivir. Discussed risk versus benefit with patient. Will continue to monitor liver function tests. 05/15: Afebrile. Breathing 2 L nasal cannula. LFTs improving, will continue to monitor. Continue steroids, remdesivir, antibiotics. Significant hyperglycemia this evening. Report from RN that patient is sneaking food in between ADA meals discussed with patient in the morning strict ADA diet, especially while on steroids. 05/16: Patient breathing on 3 L nasal cannula. Afebrile. LFTs improving, continue remdesivir. Continue steroids and antibiotics. Discussed better glucose control, not snacking in between meals. Denies fever. nausea, diarrhea. 05/17 on 3 liters nc denies fever, D/W RN follow-up CXR could be obtained to ensure that this appropriately decreases to exclude neoplastic causes. 05/18 D/C TODAY TO [facility] Vitals Vitals Vital Signs Date Time Temp Pulse Resp B/P (MAP) Pulse Ox O2 Delivery O2 Flow Rate FiO2 05/18/20 03:00 96.6 60 18 139/82 (101) 95 Nasal Cannula 3.0 96.6 Physical Exam General: Alert, Oriented X3, Cooperative, No acute distress Heart: Regular rate Lungs: Crackles Abdomen: Soft, Other (ostomy to RL, with gas noted, palpable) Extremities: No clubbing, No edema, Normal pulses Skin: No rashes, No breakdown, No significant lesion Labs LABS Exam performed: One view chest HISTORY: Pneumonia. DATE OF SERVICE: 05/17/2020. COMPARISON: Single view chest from 05/11/2020. Single AP upright portable view chest findings: Heart size is stable. Multifocal linear and airspace opacities are seen in both lungs predominantly in the upper lobes, somewhat increased since prior study. There is no pleural effusion or pneumothorax. IMPRESSION: Multifocal opacities in both lungs appear somewhat increased. Electronically signed by: Linda Gibbs MD (05/17/2020 5:00 PM) [id number] DICTATED and SIGNED BY: LINDA GIBBS MD DATE: 05/17/20 [id number] 0 FINAL DIAGNOSIS Problems Medical Problems: (1) TOMMY (acute kidney injury) Status: Acute (2) COVID-19 Status: Acute (3) Hypoxia Status: Acute Brief Hospital Course Mr. Kilpatrick is a 55 old [sex] who presented with [ COVID POS PNEUMONIA WITH TOMMY] CONDITION AT DISCHARGE: Improved Discharge Medications Current Medications Acetaminophen (Tylenol) 1,000 mg 1X ONCE PO Last administered on 05/11/20at 19:11; Start 05/11/20 at 19:15; Stop 05/11/20 at 19:16; Status DC Sodium Chloride 1,000 ml @ 1,000 mls/hr 1X ONCE IV Last administered on 05/11/20at 19:39; Start 05/11/20 at 19:45; Stop 05/11/20 at 20:44; Status DC Zinc Sulfate (Orazinc) 220 mg DAILY PO Last administered on 05/18/20at 08:25; Start 05/12/20 at 09:00 Prednisone (Prednisone) 40 mg DAILY PO Last administered on 05/13/20at 08:57; Start 05/12/20 at 09:00; Stop 05/13/20 at 16:34; Status DC Prednisone (Prednisone) 50 mg 1X ONCE PO Last administered on 05/11/20at 21:57; Start 05/11/20 at 21:00; Stop 05/11/20 at 21:01; Status DC Vitamin B Complex (Folbic Tablet) 1 tab DAILY PO Last administered on 05/18/20at 08:25; Start 05/12/20 at 09:00 Ergocalciferol (Vitamin D2) 50,000 unit 1X ONCE PO Last administered on 05/11/20at 21:56; Start 05/11/20 at 21:00; Stop 05/11/20 at 21:01; Status DC Ascorbic Acid (Vitamin C) 1,000 mg DAILY PO Last administered on 05/18/20at 08:26; Start 05/12/20 at 09:00 Enoxaparin Sodium (Lovenox Per Pharmacy Prophylaxis Dosing) 1 each PRN DAILY PRN MC SEE COMMENTS; Start 05/11/20 at 21:00 Sodium Chloride 1,000 ml @ 100 mls/hr Q10H IV Last administered on 05/18/20at 08:23; Start 05/11/20 at 21:00 Enoxaparin Sodium (Lovenox 40mg Syringe) 40 mg BID SQ Last administered on 05/18/20at 08:25; Start 05/11/20 at 21:00 Oxycodone/ Acetaminophen (Percocet 5/325) 1 tab PRN Q4HRS PRN PO SEVERE PAIN 7-10 Last administered on 05/15/20at 05:45; Start 05/11/20 at 21:00 Insulin Human Lispro (HumaLOG) 0-7 UNITS TIDWMEALS SQ Last administered on 05/14/20at 11:38; Start 05/12/20 at 08:00; Stop 05/14/20 at 16:36; Status DC Dextrose (Dextrose 50%-Water Syringe) 12.5 gm PRN Q15MIN PRN IV SEE COMMENTS; Start 05/11/20 at 21:15; Stop 05/14/20 at 16:36; Status DC Insulin Glargine (Lantus Syringe) 10 unit 1X ONCE SQ Last administered on 05/11/20at 21:59; Start 05/11/20 at 21:15; Stop 05/11/20 at 21:16; Status DC Ondansetron HCl (Zofran) 4 mg PRN Q6HRS PRN IVP NAUSEA/VOMITING Last administered on 05/12/20at 09:45; Start 05/12/20 at 09:30; Stop 05/12/20 at 11:55; Status DC Amiodarone HCl (Cordarone) 200 mg DAILY PO Last administered on 05/18/20at 08:26; Start 05/12/20 at 12:00 Aspirin (Ecotrin) 325 mg DAILY PO Last administered on 05/18/20at 08:25; Start 05/12/20 at 12:00 Acetaminophen/ Aspirin/Caffeine (Excedrin Migraine) 2 tab PRN DAILY PRN PO MIGRAINE HEADACHE; Start 05/12/20 at 11:00 Atorvastatin Calcium (Lipitor) 10 mg DAILY PO Last administered on 05/18/20at 08:26; Start 05/13/20 at 09:00 Cetirizine HCl (ZyrTEC) 10 mg DAILY PO Last administered on 05/18/20at 08:26; Start 05/12/20 at 12:00 Furosemide (Lasix) 40 mg DAILY PO Last administered on 05/18/20at 08:26; Start 05/12/20 at 12:00 Gabapentin (Neurontin) 300 mg TID PO Last administered on 05/18/20at 08:26; Start 05/12/20 at 14:00 Insulin Human Isoph/Insulin Regular (HumuLIN 70-30 VIAL) 20 units QEVNG SQ ; Start 05/12/20 at 18:00; Stop 05/12/20 at 17:31; Status DC Insulin Human Isoph/Insulin Regular (HumuLIN 70-30 VIAL) 30 units QAM SQ Last administered on 05/14/20at 08:33; Start 05/13/20 at 09:00; Stop 05/14/20 at 16:38; Status DC Pantoprazole Sodium (Protonix) 40 mg DAILYAC PO Last administered on 05/18/20at 08:25; Start 05/13/20 at 07:30 Potassium Chloride (Klor-Con) 20 meq DAILY PO ; Start 05/13/20 at 09:00; Stop 05/12/20 at 15:05; Status DC Ondansetron HCl (Zofran Odt) 4 mg PRN Q8HRS PRN PO NAUSEA/VOMITING; Start 05/12/20 at 11:30 Ceftriaxone Sodium (Rocephin) 1 gm Q24H IVP Last administered on 05/18/20at 11:19; Start 05/12/20 at 12:30 Doxycycline Hyclate 100 mg/ Dextrose 100 ml @ 50 mls/hr Q12HR IV Last administered on 05/15/20at 09:45; Start 05/12/20 at 12:30; Stop 05/15/20 at 13:01; Status DC Ondansetron HCl (Zofran) 4 mg PRN Q4HRS PRN IVP NAUSEA/VOMITING Last administered on 05/12/20at 22:55; Start 05/12/20 at 12:00 Prochlorperazine Edisylate (Compazine) 10 mg PRN Q6HRS PRN IV NAUSEA/VOMITING 2ND CHOICE Last administered on 05/17/20at 14:32; Start 05/12/20 at 13:30 Lactobacillus Rhamnosus (Culturelle) 1 cap BID PO Last administered on 05/18/20at 08:25; Start 05/12/20 at 21:00 Insulin Human Isoph/Insulin Regular (HumuLIN 70-30 VIAL) 20 units QPM SQ Last administered on 05/13/20at 17:53; Start 05/12/20 at 18:00; Stop 05/14/20 at 16:36; Status DC Fluticasone/ Vilanterol (Breo Ellipta 200-25 Mcg) 1 puff DAILY INH Last administered on 05/18/20at 08:23; Start 05/13/20 at 16:00 Dexamethasone Sodium Phosphate (Decadron) 6 mg DAILY IVP Last administered on 05/18/20at 08:27; Start 05/14/20 at 09:00 Guaifenesin/ Codeine Phosphate (Robitussin Ac) 5 ml PRN Q6HRS PRN PO COUGH Last administered on 05/15/20at 05:45; Start 05/14/20 at 11:30 Remdesivir 200 mg/ Sodium Chloride 210 ml @ 210 mls/hr 1X ONCE IV Last administered on 05/14/20at 16:08; Start 05/14/20 at 15:30; Stop 05/14/20 at 16:29; Status DC Remdesivir 100 mg/ Sodium Chloride 230 ml @ 460 mls/hr Q24H IV Last administered on 05/18/20at 11:19; Start 05/15/20 at 12:00; Stop 05/18/20 at 12:29 Insulin Human Lispro (HumaLOG) 25 units 1X ONCE SQ Last administered on 05/14/20at 16:49; Start 05/14/20 at 16:30; Stop 05/14/20 at 16:33; Status DC Insulin Glargine (Lantus Syringe) 28 unit QHS SQ Last administered on 05/14/20at 21:21; Start 05/14/20 at 21:00; Stop 05/15/20 at 20:23; Status DC Insulin Human Lispro (HumaLOG) 10 units TIDWMEALS SQ Last administered on 05/15/20at 17:26; Start 05/14/20 at 17:00; Stop 05/15/20 at 20:23; Status DC Dextrose (Dextrose 50%-Water Syringe) 12.5 gm PRN Q15MIN PRN IV SEE COMMENTS; Start 05/14/20 at 16:45 Insulin Human Lispro (HumaLOG) 20 units 1X ONCE SQ Last administered on 05/15/20at 12:05; Start 05/15/20 at 12:00; Stop 05/15/20 at 12:01; Status DC Doxycycline Hyclate (Vibra-Tab) 100 mg BID PO Last administered on 05/18/20at 08:26; Start 05/15/20 at 13:00 Insulin Human Lispro (HumaLOG) 25 units ONCE ONCE SQ Last administered on 05/15/20at 22:02; Start 05/15/20 at 20:30; Stop 05/15/20 at 20:31; Status DC Sodium Chloride 500 ml @ 500 mls/hr Q1H IV Last administered on 05/15/20at 2 1:08; Start 05/15/20 at 20:30; Stop 05/15/20 at 21:29; Status DC Insulin Glargine (Lantus Syringe) 16 unit BIDBFRMEAL SQ Last administered on 05/16/20at 16:52; Start 05/15/20 at 21:00; Stop 05/16/20 at 23:03; Status DC Insulin Human Lispro (HumaLOG) 12 units TIDWMEALS SQ Last administered on 05/18/20at 11:18; Start 05/15/20 at 20:30 Insulin Glargine (Lantus Syringe) 25 unit ONCE ONCE SQ Last administered on 05/15/20at 22:36; Start 05/15/20 at 22:15; Stop 05/15/20 at 22:16; Status DC Insulin Glargine (Lantus Syringe) 20 unit BID SQ Last administered on 05/18/20at 09:25; Start 05/17/20 at 09:00 Insulin Human Lispro (HumaLOG) 0-9 UNITS TIDACHC SQ Last administered on 05/18/20at 11:18; Start 05/17/20 at 07:30 Dextrose (Dextrose 50%-Water Syringe) 12.5 gm PRN Q15MIN PRN IV SEE COMMENTS; Start 05/16/20 at 23:00 Insulin Human Lispro (HumaLOG) 19 units 1X ONCE SQ Last administered on 05/16/20at 23:59; Start 05/16/20 at 23:15; Stop 05/16/20 at 23:19; Status DC Insulin Human Lispro (HumaLOG) 8 units 1X ONCE SQ Last administered on 05/17/20at 17:08; Start 05/17/20 at 17:00; Stop 05/17/20 at 17:01; Status DC Insulin Human Lispro (HumaLOG) 8 units 1X ONCE SQ Last administered on 05/18/20at 11:17; Start 05/18/20 at 11:15; Stop 05/18/20 at 11:16; Status DC Active Scripts Active Reported Zofran (Ondansetron Hcl) 4 Mg Tablet 1 Tab PO TID PRN PRN Protonix (Pantoprazole Sodium) 40 Mg Tablet.dr 40 Mg PO DAILYAC Potassium Chloride (Potassium Chloride) 20 Meq Tablet.er 20 Meq PO DAILY Lasix (Furosemide) 40 Mg Tablet 1 Tab PO DAILY 30 Days Humulin 70-30 Vial (Hum Insulin Nph/Reg Insulin Hm) 100 Unit/1 Ml Vial 30 Unit SQ QAM Humulin 70-30 Vial (Hum Insulin Nph/Reg Insulin Hm) 100 Unit/1 Ml Vial 20 Unit SQ QEVNG Gabapentin (Gabapentin) 300 Mg Capsule 300 Mg PO TID Excedrin Migraine Caplet (Aspirin/Acetaminophen/Caffeine) 1 Each Tablet 2 Each PO DAILY PRN Ecotrin (Aspirin) 325 Mg Tablet.dr 325 Mg PO DAILY Cetirizine Hcl 10 Mg Tablet 1 Tab PO DAILY Atorvastatin Calcium 10 Mg Tablet 1 Tab PO DAILY Amiodarone Hcl 200 Mg Tablet 1 Tab PO DAILY Vital Signs Vital Signs Date Time Temp Pulse Resp B/P (MAP) Pulse Ox O2 Delivery O2 Flow Rate FiO2 05/18/20 11:00 95.7 68 18 142/97 (112) 98 Nasal Cannula 3.0 95.7 Labs Laboratory Tests Test 05/16/20 16:33 05/16/20 19:44 05/17/20 06:05 05/17/20 06:08 Glucose (Fingerstick) 379 mg/dL (70-99) 413 mg/dL (70-99) White Blood Count 12.8 x10^3/uL (4.0-11.0) Red Blood Count 4.35 x10^6/uL (4.30-5.70) Hemoglobin 12.6 g/dL (13.0-17.5) Hematocrit 39.6 % (39.0-53.0) Mean Corpuscular Volume 91 fL (79-100) Mean Corpuscular Hemoglobin 29 pg (25-35) Mean Corpuscular Hemoglobin Concent 32 g/dL (31-37) Red Cell Distribution Width 16.1 % (11.5-14.5) Platelet Count 439 x10^3/uL (140-400) Neutrophils (%) (Auto) 85 % (31-73) Lymphocytes (%) (Auto) 6 % (24-48) Monocytes (%) (Auto) 9 % (0-9) Eosinophils (%) (Auto) 0 % (0-3) Basophils (%) (Auto) 0 % (0-3) Neutrophils # (Auto) 10.9 x10^3/uL (1.8-7.7) Lymphocytes # (Auto) 0.8 x10^3/uL (1.0-4.8) Monocytes # (Auto) 1.2 x10^3/uL (0.0-1.1) Eosinophils # (Auto) 0.0 x10^3/uL (0.0-0.7) Basophils # (Auto) 0.0 x10^3/uL (0.0-0.2) Sodium Level 139 mmol/L (136-145) Potassium Level 4.2 mmol/L (3.5-5.1) Chloride Level 104 mmol/L (98-107) Carbon Dioxide Level 27 mmol/L (21-32) Anion Gap 8 (6-14) Blood Urea Nitrogen 32 mg/dL (8-26) Creatinine 1.4 mg/dL (0.7-1.3) Estimated GFR (Cockcroft-Gault) 53.0 Glucose Level 214 mg/dL (70-99) Calcium Level 8.7 mg/dL (8.5-10.1) Total Bilirubin 0.4 mg/dL (0.2-1.0) Direct Bilirubin 0.1 mg/dL (0.0-0.2) Aspartate Amino Transf (AST/SGOT) 21 U/L (15-37) Alanine Aminotransferase (ALT/SGPT) 79 U/L (16-63) Alkaline Phosphatase 211 U/L (46-116) Total Protein 5.9 g/dL (6.4-8.2) Albumin 2.2 g/dL (3.4-5.0) Test 05/17/20 07:12 05/17/20 11:10 05/17/20 16:35 05/17/20 20:00 Glucose (Fingerstick) 209 mg/dL (70-99) 277 mg/dL (70-99) 381 mg/dL (70-99) 331 mg/dL (70-99) Test 05/18/20 07:15 05/18/20 07:31 05/18/20 07:56 05/18/20 10:38 Sodium Level 138 mmol/L (136-145) Potassium Level 4.5 mmol/L (3.5-5.1) Chloride Level 104 mmol/L (98-107) Carbon Dioxide Level 28 mmol/L (21-32) Anion Gap 6 (6-14) Blood Urea Nitrogen 32 mg/dL (8-26) Creatinine 1.4 mg/dL (0.7-1.3) Estimated GFR (Cockcroft-Gault) 53.0 Glucose Level 354 mg/dL (70-99) Calcium Level 8.2 mg/dL (8.5-10.1) Total Bilirubin 0.4 mg/dL (0.2-1.0) Direct Bilirubin 0.2 mg/dL (0.0-0.2) Aspartate Amino Transf (AST/SGOT) 32 U/L (15-37) Alanine Aminotransferase (ALT/SGPT) 83 U/L (16-63) Alkaline Phosphatase 230 U/L (46-116) Total Protein 5.8 g/dL (6.4-8.2) Albumin 2.1 g/dL (3.4-5.0) Glucose (Fingerstick) 381 mg/dL (70-99) 481 mg/dL (70-99) White Blood Count 11.5 x10^3/uL (4.0-11.0) Red Blood Count 4.40 x10^6/uL (4.30-5.70) Hemoglobin 12.9 g/dL (13.0-17.5) Hematocrit 40.2 % (39.0-53.0) Mean Corpuscular Volume 91 fL (79-100) Mean Corpuscular Hemoglobin 29 pg (25-35) Mean Corpuscular Hemoglobin Concent 32 g/dL (31-37) Red Cell Distribution Width 16.2 % (11.5-14.5) Platelet Count 475 x10^3/uL (140-400) Neutrophils (%) (Auto) 85 % (31-73) Lymphocytes (%) (Auto) 6 % (24-48) Monocytes (%) (Auto) 9 % (0-9) Eosinophils (%) (Auto) 0 % (0-3) Basophils (%) (Auto) 0 % (0-3) Neutrophils # (Auto) 9.8 x10^3/uL (1.8-7.7) Lymphocytes # (Auto) 0.7 x10^3/uL (1.0-4.8) Monocytes # (Auto) 1.0 x10^3/uL (0.0-1.1) Eosinophils # (Auto) 0.0 x10^3/uL (0.0-0.7) Basophils # (Auto) 0.0 x10^3/uL (0.0-0.2) Laboratory Tests Test 05/17/20 16:35 05/17/20 20:00 05/18/20 07:15 05/18/20 07:31 Glucose (Fingerstick) 381 mg/dL (70-99) 331 mg/dL (70-99) 381 mg/dL (70-99) Sodium Level 138 mmol/L (136-145) Potassium Level 4.5 mmol/L (3.5-5.1) Chloride Level 104 mmol/L (98-107) Carbon Dioxide Level 28 mmol/L (21-32) Anion Gap 6 (6-14) Blood Urea Nitrogen 32 mg/dL (8-26) Creatinine 1.4 mg/dL (0.7-1.3) Estimated GFR (Cockcroft-Gault) 53.0 Glucose Level 354 mg/dL (70-99) Calcium Level 8.2 mg/dL (8.5-10.1) Total Bilirubin 0.4 mg/dL (0.2-1.0) Direct Bilirubin 0.2 mg/dL (0.0-0.2) Aspartate Amino Transf (AST/SGOT) 32 U/L (15-37) Alanine Aminotransferase (ALT/SGPT) 83 U/L (16-63) Alkaline Phosphatase 230 U/L (46-116) Total Protein 5.8 g/dL (6.4-8.2) Albumin 2.1 g/dL (3.4-5.0) Test 05/18/20 07:56 05/18/20 10:38 White Blood Count 11.5 x10^3/uL (4.0-11.0) Red Blood Count 4.40 x10^6/uL (4.30-5.70) Hemoglobin 12.9 g/dL (13.0-17.5) Hematocrit 40.2 % (39.0-53.0) Mean Corpuscular Volume 91 fL (79-100) Mean Corpuscular Hemoglobin 29 pg (25-35) Mean Corpuscular Hemoglobin Concent 32 g/dL (31-37) Red Cell Distribution Width 16.2 % (11.5-14.5) Platelet Count 475 x10^3/uL (140-400) Neutrophils (%) (Auto) 85 % (31-73) Lymphocytes (%) (Auto) 6 % (24-48) Monocytes (%) (Auto) 9 % (0-9) Eosinophils (%) (Auto) 0 % (0-3) Basophils (%) (Auto) 0 % (0-3) Neutrophils # (Auto) 9.8 x10^3/uL (1.8-7.7) Lymphocytes # (Auto) 0.7 x10^3/uL (1.0-4.8) Monocytes # (Auto) 1.0 x10^3/uL (0.0-1.1) Eosinophils # (Auto) 0.0 x10^3/uL (0.0-0.7) Basophils # (Auto) 0.0 x10^3/uL (0.0-0.2) Glucose (Fingerstick) 481 mg/dL (70-99) Allergies Allergies Coded Allergies Type Severity Reaction Last Updated Verified No Known Drug Allergies 05/11/20 No Disposition/Orders: Other (D/C TO LONG TERM) Justicifation of Admission Dx: Justifications for Admission: Justification of Admission Dx: Yes Comminuty Aquired Pneumonia: Hypoxemia NUNU VALDEZ MD May 18, 2020 12:27
[2020-05-18] MEDS ORDERED: ASCO100019 PO (12:34)
[2020-05-18] MEDS ORDERED: CYAN1TAB19 PO (12:34)
[2020-05-18] MEDS ORDERED: ZINC220C2 PO (12:34)
[2020-05-18] MEDS ORDERED: FLUT1BLS2 INH (12:34)
[2020-05-18] MEDS ORDERED: LACT1CAP19 PO (12:34)
[2020-05-18] MEDS ORDERED: DEXA4TAB PO (12:34)
[2020-05-18] MEDS ORDERED: DOXY100T PO (12:34)
[2020-05-18] MEDS ORDERED: ENOX40DI3 SQ (12:34)
[2020-05-18] MEDS ORDERED: AMOX1TAB61 PO (12:34)
--- NOTE | 2020-05-18 12:35 | DISCH ---
DISCHARGE INSTRUCTIONS Condition on Discharge Condition on Discharge: Stable Activity After Discharge Activity Instructions for Disc: Activity as tolerated Lifting Instructions after Dis: No heavy lifting, No pulling or pushing Driving Instructions after Dis: Do not drive Diet after Discharge Diet after Discharge: Diabetic No Calorie Level Liquid Texture: Thin Liquid Checks after Discharge Checks after discharge: Check blood press - daily Contacting the DR. after DC Call your doctor for: If your condition worsens Follow-Up Follow up with: PCP AT [facility] TODAY Treatment/Equipment after DC Discharge Respiratory Equipmen: Oxygen NUNU VALDEZ MD May 18, 2020 12:35
--- NOTE | 2020-05-18 14:30 | NUR ---
pt blood sugar 366 after a total of 29 units of Humalog x1. Notified Dr. Espinoza. Orders received for 7 additional units of Humalog then recheck blood sugar in 30 minutes and if blood sugar is under 300 then patient can still discharge. 1500- Pt blood sugar 369. Discharge cancelled for today. Will continue to monitor.
[2020-05-18 15:00] VITALS: BP 140/91
[2020-05-18 19:58] VITALS: BP 130/83
[2020-05-18 23:37] VITALS: BP 143/94
[2020-05-19 03:30] VITALS: BP 154/92
[2020-05-19] MEDS: IV NORMAL SALINE 1000ML BAG 1,000 ML IV SCH (06:10)
[2020-05-19 07:00] VITALS: BP 149/94
--- NOTE | 2020-05-19 08:41 | PDOC ---
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 Kilpatrick is a prisoner at [place], and has had 17 negative COVID tests until last week, the , was pos, then symptoms started, mostly malaise, weakness, lethargy and anorexia, with poor liquid and PO intake, and now having more marked weakness, and cough and marked chest pain. he takes no meds, UC was improved with colon resection surgery years ago,. has been in [place] halfway for at least one year. 05/12: Patient seen and evaluated bedside. Currently on room air. Febrile overnight. Had some nausea and vomiting today. Will continue with prednisone 40 mg daily. Will add Rocephin and doxycycline. Will attempt to obtain 6- minute walk to evaluate for oxygen requirement, or room air ABG to look for PO2 less than 55 mmHg. 05/13: Afebrile. Some nausea and vomiting today. Currently breathing on 4 L nasal cannula. Transaminitis noted, but trending down. Will continue to trend and sitter initiating remdesivir when LFTs improved. Continue Rocephin, doxycycline, steroids. Complains of some chest discomfort when he takes deep breath. Will call pharmacy to provide Breo. 05/14: Patient seen and evaluated. Complains of some pleuritic chest pain and chest tenderness. Breathing 40s nasal cannula, afebrile. LFTs improving. Will initiate remdesivir. Discussed risk versus benefit with patient. Will continue to monitor liver function tests. 05/15: Afebrile. Breathing 2 L nasal cannula. LFTs improving, will continue to monitor. Continue steroids, remdesivir, antibiotics. Significant hyperglycemia this evening. Report from RN that patient is sneaking food in between ADA meals discussed with patient in the morning strict ADA diet, especially while on steroids. 05/16: Patient breathing on 3 L nasal cannula. Afebrile. LFTs improving, continue remdesivir. Continue steroids and antibiotics. Discussed better glucose control, not snacking in between meals. Denies fever. nausea, diarrhea. 05/17 on 3 liters nc denies fever, D/W RN follow-up CXR could be obtained to ensure that this appropriately decreases to exclude neoplastic causes. 05/18 D/C TODAY TO [facility] Vitals Vitals Vital Signs Date Time Temp Pulse Resp B/P (MAP) Pulse Ox O2 Delivery O2 Flow Rate FiO2 05/19/20 03:30 97.4 59 18 154/92 (112) 97 Room Air 97.4 05/18/20 20:00 3.0 Physical Exam General: Alert, Oriented X3, Cooperative, No acute distress Heart: Regular rate Lungs: Crackles Abdomen: Soft, Other (ostomy to RL, with gas noted, palpable) Extremities: No clubbing, No edema, Normal pulses Skin: No rashes, No breakdown, No significant lesion Labs LABS Laboratory Tests Test 05/18/20 10:38 05/18/20 14:59 05/18/20 16:43 05/18/20 20:50 Glucose (Fingerstick) 481 mg/dL (70-99) 369 mg/dL (70-99) 326 mg/dL (70-99) 334 mg/dL (70-99) Test 05/19/20 08:11 Glucose (Fingerstick) 307 mg/dL (70-99) Assessment and Plan Assessmemt and Plan Problems Medical Problems: (1) TOMMY (acute kidney injury) Status: Acute (2) COVID-19 Status: Acute (3) Hypoxia Status: Acute Comment Review of Relevant I have reviewed the following items nallely (where applicable) has been applied. Labs Laboratory Tests Test 05/17/20 11:10 05/17/20 16:35 05/17/20 20:00 05/18/20 07:15 Glucose (Fingerstick) 277 mg/dL (70-99) 381 mg/dL (70-99) 331 mg/dL (70-99) Sodium Level 138 mmol/L (136-145) Potassium Level 4.5 mmol/L (3.5-5.1) Chloride Level 104 mmol/L (98-107) Carbon Dioxide Level 28 mmol/L (21-32) Anion Gap 6 (6-14) Blood Urea Nitrogen 32 mg/dL (8-26) Creatinine 1.4 mg/dL (0.7-1.3) Estimated GFR (Cockcroft-Gault) 53.0 Glucose Level 354 mg/dL (70-99) Calcium Level 8.2 mg/dL (8.5-10.1) Total Bilirubin 0.4 mg/dL (0.2-1.0) Direct Bilirubin 0.2 mg/dL (0.0-0.2) Aspartate Amino Transf (AST/SGOT) 32 U/L (15-37) Alanine Aminotransferase (ALT/SGPT) 83 U/L (16-63) Alkaline Phosphatase 230 U/L (46-116) Total Protein 5.8 g/dL (6.4-8.2) Albumin 2.1 g/dL (3.4-5.0) Test 05/18/20 07:31 05/18/20 07:56 05/18/20 10:38 05/18/20 14:59 Glucose (Fingerstick) 381 mg/dL (70-99) 481 mg/dL (70-99) 369 mg/dL (70-99) White Blood Count 11.5 x10^3/uL (4.0-11.0) Red Blood Count 4.40 x10^6/uL (4.30-5.70) Hemoglobin 12.9 g/dL (13.0-17.5) Hematocrit 40.2 % (39.0-53.0) Mean Corpuscular Volume 91 fL (79-100) Mean Corpuscular Hemoglobin 29 pg (25-35) Mean Corpuscular Hemoglobin Concent 32 g/dL (31-37) Red Cell Distribution Width 16.2 % (11.5-14.5) Platelet Count 475 x10^3/uL (140-400) Neutrophils (%) (Auto) 85 % (31-73) Lymphocytes (%) (Auto) 6 % (24-48) Monocytes (%) (Auto) 9 % (0-9) Eosinophils (%) (Auto) 0 % (0-3) Basophils (%) (Auto) 0 % (0-3) Neutrophils # (Auto) 9.8 x10^3/uL (1.8-7.7) Lymphocytes # (Auto) 0.7 x10^3/uL (1.0-4.8) Monocytes # (Auto) 1.0 x10^3/uL (0.0-1.1) Eosinophils # (Auto) 0.0 x10^3/uL (0.0-0.7) Basophils # (Auto) 0.0 x10^3/uL (0.0-0.2) Test 05/18/20 16:43 05/18/20 20:50 05/19/20 08:11 Glucose (Fingerstick) 326 mg/dL (70-99) 334 mg/dL (70-99) 307 mg/dL (70-99) Laboratory Tests Test 05/18/20 10:38 05/18/20 14:59 05/18/20 16:43 05/18/20 20:50 Glucose (Fingerstick) 481 mg/dL (70-99) 369 mg/dL (70-99) 326 mg/dL (70-99) 334 mg/dL (70-99) Test 05/19/20 08:11 Glucose (Fingerstick) 307 mg/dL (70-99) Medications Current Medications Acetaminophen (Tylenol) 1,000 mg 1X ONCE PO Last administered on 05/11/20at 19:11; Start 05/11/20 at 19:15; Stop 05/11/20 at 19:16; Status DC Sodium Chloride 1,000 ml @ 1,000 mls/hr 1X ONCE IV Last administered on 05/11/20at 19:39; Start 05/11/20 at 19:45; Stop 05/11/20 at 20:44; Status DC Zinc Sulfate (Orazinc) 220 mg DAILY PO Last administered on 05/18/20at 08:25; Start 05/12/20 at 09:00 Prednisone (Prednisone) 40 mg DAILY PO Last administered on 05/13/20at 08:57; Start 05/12/20 at 09:00; Stop 05/13/20 at 16:34; Status DC Prednisone (Prednisone) 50 mg 1X ONCE PO Last administered on 05/11/20at 21:57; Start 05/11/20 at 21:00; Stop 05/11/20 at 21:01; Status DC Vitamin B Complex (Folbic Tablet) 1 tab DAILY PO Last administered on 05/18/20at 08:25; Start 05/12/20 at 09:00 Ergocalciferol (Vitamin D2) 50,000 unit 1X ONCE PO Last administered on 05/11/20at 21:56; Start 05/11/20 at 21:00; Stop 05/11/20 at 21:01; Status DC Ascorbic Acid (Vitamin C) 1,000 mg DAILY PO Last administered on 05/18/20at 08:26; Start 05/12/20 at 09:00 Enoxaparin Sodium (Lovenox Per Pharmacy Prophylaxis Dosing) 1 each PRN DAILY PRN MC SEE COMMENTS; Start 05/11/20 at 21:00 Sodium Chloride 1,000 ml @ 100 mls/hr Q10H IV Last administered on 05/19/20at 06:10; Start 05/11/20 at 21:00 Enoxaparin Sodium (Lovenox 40mg Syringe) 40 mg BID SQ Last administered on 05/18/20at 20:27; Start 05/11/20 at 21:00 Oxycodone/ Acetaminophen (Percocet 5/325) 1 tab PRN Q4HRS PRN PO SEVERE PAIN 7- 10 Last administered on 05/15/20at 05:45; Start 05/11/20 at 21:00 Insulin Human Lispro (HumaLOG) 0-7 UNITS TIDWMEALS SQ Last administered on 05/14/20at 11:38; Start 05/12/20 at 08:00; Stop 05/14/20 at 16:36; Status DC Dextrose (Dextrose 50%-Water Syringe) 12.5 gm PRN Q15MIN PRN IV SEE COMMENTS; Start 05/11/20 at 21:15; Stop 05/14/20 at 16:36; Status DC Insulin Glargine (Lantus Syringe) 10 unit 1X ONCE SQ Last administered on 05/11/20at 21:59; Start 05/11/20 at 21:15; Stop 05/11/20 at 21:16; Status DC Ondansetron HCl (Zofran) 4 mg PRN Q6HRS PRN IVP NAUSEA/VOMITING Last administered on 05/12/20at 09:45; Start 05/12/20 at 09:30; Stop 05/12/20 at 11:55; Status DC Amiodarone HCl (Cordarone) 200 mg DAILY PO Last administered on 05/18/20at 08:26; Start 05/12/20 at 12:00 Aspirin (Ecotrin) 325 mg DAILY PO Last administered on 05/18/20at 08:25; Start 05/12/20 at 12:00 Acetaminophen/ Aspirin/Caffeine (Excedrin Migraine) 2 tab PRN DAILY PRN PO MIGRAINE HEADACHE; Start 05/12/20 at 11:00 Atorvastatin Calcium (Lipitor) 10 mg DAILY PO Last administered on 05/18/20at 08:26; Start 05/13/20 at 09:00 Cetirizine HCl (ZyrTEC) 10 mg DAILY PO Last administered on 05/18/20at 08:26; Start 05/12/20 at 12:00 Furosemide (Lasix) 40 mg DAILY PO Last administered on 05/18/20at 08:26; Start 05/12/20 at 12:00 Gabapentin (Neurontin) 300 mg TID PO Last administered on 05/18/20at 20:27; Start 05/12/20 at 14:00 Insulin Human Isoph/Insulin Regular (HumuLIN 70-30 VIAL) 20 units QEVNG SQ ; Start 05/12/20 at 18:00; Stop 05/12/20 at 17:31; Status DC Insulin Human Isoph/Insulin Regular (HumuLIN 70-30 VIAL) 30 units QAM SQ Last administered on 05/14/20at 08:33; Start 05/13/20 at 09:00; Stop 05/14/20 at 16:38; Status DC Pantoprazole Sodium (Protonix) 40 mg DAILYAC PO Last administered on 05/18/20at 08:25; Start 05/13/20 at 07:30 Potassium Chloride (Klor-Con) 20 meq DAILY PO ; Start 05/13/20 at 09:00; Stop 05/12/20 at 15:05; Status DC Ondansetron HCl (Zofran Odt) 4 mg PRN Q8HRS PRN PO NAUSEA/VOMITING; Start 05/12/20 at 11:30 Ceftriaxone Sodium (Rocephin) 1 gm Q24H IVP Last administered on 05/18/20at 11:19; Start 05/12/20 at 12:30 Doxycycline Hyclate 100 mg/ Dextrose 100 ml @ 50 mls/hr Q12HR IV Last administered on 05/15/20 09:45; Start 05/12/20 at 12:30; Stop 05/15/20 at 13:01; Status DC Ondansetron HCl (Zofran) 4 mg PRN Q4HRS PRN IVP NAUSEA/VOMITING Last administered on 05/12/20at 22:55; Start 05/12/20 at 12:00 Prochlorperazine Edisylate (Compazine) 10 mg PRN Q6HRS PRN IV NAUSEA/VOMITING 2ND CHOICE Last administered on 05/17/20at 14:32; Start 05/12/20 at 13:30 Lactobacillus Rhamnosus (Culturelle) 1 cap BID PO Last administered on 05/18/20at 20:27; Start 05/12/20 at 21:00 Insulin Human Isoph/Insulin Regular (HumuLIN 70-30 VIAL) 20 units QPM SQ Last administered on 05/13/20at 17:53; Start 05/12/20 at 18:00; Stop 05/14/20 at 16:36; Status DC Fluticasone/ Vilanterol (Breo Ellipta 200-25 Mcg) 1 puff DAILY INH Last administered on 05/18/20at 08:23; Start 05/13/20 at 16:00 Dexamethasone Sodium Phosphate (Decadron) 6 mg DAILY IVP Last administered on 05/18/20at 08:27; Start 05/14/20 at 09:00 Guaifenesin/ Codeine Phosphate (Robitussin Ac) 5 ml PRN Q6HRS PRN PO COUGH Last administered on 05/15/20 05:45; Start 05/14/20 at 11:30 Remdesivir 200 mg/ Sodium Chloride 210 ml @ 210 mls/hr 1X ONCE IV Last adm inistered on 05/14/20at 16:08; Start 05/14/20 at 15:30; Stop 05/14/20 at 16:29; Status DC Remdesivir 100 mg/ Sodium Chloride 230 ml @ 460 mls/hr Q24H IV Last administered on 05/18/20at 11:19; Start 05/15/20 at 12:00; Stop 05/18/20 at 12:29; Status DC Insulin Human Lispro (HumaLOG) 25 units 1X ONCE SQ Last administered on 05/14/20at 16:49; Start 05/14/20 at 16:30; Stop 05/14/20 at 16:33; Status DC Insulin Glargine (Lantus Syringe) 28 unit QHS SQ Last administered on 05/14/20at 21:21; Start 05/14/20 at 21:00; Stop 05/15/20 at 20:23; Status DC Insulin Human Lispro (HumaLOG) 10 units TIDWMEALS SQ Last administered on 05/15/20at 17:26; Start 05/14/20 at 17:00; Stop 05/15/20 at 20:23; Status DC Dextrose (Dextrose 50%-Water Syringe) 12.5 gm PRN Q15MIN PRN IV SEE COMMENTS; Start 05/14/20 at 16:45; Status Cancel Insulin Human Lispro (HumaLOG) 20 units 1X ONCE SQ Last administered on 05/15/20at 12:05; Start 05/15/20 at 12:00; Stop 05/15/20 at 12:01; Status DC Doxycycline Hyclate (Vibra-Tab) 100 mg BID PO Last administered on 05/18/20at 20:28; Start 05/15/20 at 13:00 Insulin Human Lispro (HumaLOG) 25 units ONCE ONCE SQ Last administered on 05/15/20at 22:02; Start 05/15/20 at 20:30; Stop 05/15/20 at 20:31; Status DC Sodium Chloride 500 ml @ 500 mls/hr Q1H IV Last administered on 05/15/20at 21:08; Start 05/15/20 at 20:30; Stop 05/15/20 at 21:29; Status DC Insulin Glargine (Lantus Syringe) 16 unit BIDBFRMEAL SQ Last administered on 05/16/20at 16:52; Start 05/15/20 at 21:00; Stop 05/16/20 at 23:03; Status DC Insulin Human Lispro (HumaLOG) 12 units TIDWMEALS SQ Last administered on 05/18/20at 17:17; Start 05/15/20 at 20:30 Insulin Glargine (Lantus Syringe) 25 unit ONCE ONCE SQ Last administered on 05/15/20at 22:36; Start 05/15/20 at 22:15; Stop 05/15/20 at 22:16; Status DC Insulin Glargine (Lantus Syringe) 20 unit BID SQ Last administered on 05/18/20at 22:36; Start 05/17/20 at 09:00 Insulin Human Lispro (HumaLOG) 0-9 UNITS TIDACHC SQ Last administered on 05/18/20at 22:34; Start 05/17/20 at 07:30 Dextrose (Dextrose 50%-Water Syringe) 12.5 gm PRN Q15MIN PRN IV SEE COMMENTS; Start 05/16/20 at 23:00 Insulin Human Lispro (HumaLOG) 19 units 1X ONCE SQ Last administered on 05/16/20at 23:59; Start 05/16/20 at 23:15; Stop 05/16/20 at 23:19; Status DC Insulin Human Lispro (HumaLOG) 8 units 1X ONCE SQ Last administered on 05/17/20at 17:08; Start 05/17/20 at 17:00; Stop 05/17/20 at 17:01; Status DC Insulin Human Lispro (HumaLOG) 8 units 1X ONCE SQ Last administered on 05/18/20at 11:17; Start 05/18/20 at 11:15; Stop 05/18/20 at 11:16; Status DC Insulin Human Lispro (HumaLOG) 7 units 1X ONCE SQ Last administered on 05/18/20at 14:04; Start 05/18/20 at 13:30; Stop 05/18/20 at 13:31; Status DC Active Scripts Active Dexamethasone 4 Mg Tablet 4 Tab PO DAILY 7 Days Augmentin 875-125 Tablet (Amoxicillin/Potassium Clav) 1 Each Tablet 1 Tab PO BID 7 Days Vitamin C (Ascorbic Acid) 1,000 Mg Tablet 1,000 Mg PO DAILY 30 Days Folbic Tablet (Cyanocobalamin/Fa/Pyridoxine) 1 Each Tablet 1 Tab PO DAILY 30 Days Culturelle (Lactobacillus Rhamnosus Gg) 1 Each Cap.sprink 1 Cap PO BID 30 Days Breo Ellipta 200-25 Mcg INH (Fluticasone/Vilanterol) 1 Each Blst.w.dev 1 Puff INH DAILY MDD ONE 30 Days Orazinc (Zinc Sulfate) 220 Mg Capsule 220 Mg PO DAILY 30 Days Enoxaparin Sodium 40 Mg/0.4 Ml Disp.syrin 40 Mg SQ BID 14 Days Doxycycline Hyclate 100 Mg Tablet 100 Mg PO BID 10 Days Reported Zofran (Ondansetron Hcl) 4 Mg Tablet 1 Tab PO TID PRN PRN Protonix (Pantoprazole Sodium) 40 Mg Tablet.dr 40 Mg PO DAILYAC Potassium Chloride (Potassium Chloride) 20 Meq Tablet.er 20 Meq PO DAILY Lasix (Furosemide) 40 Mg Tablet 1 Tab PO DAILY 30 Days Humulin 70-30 Vial (Hum Insulin Nph/Reg Insulin Hm) 100 Unit/1 Ml Vial 30 Unit SQ QAM Humulin 70-30 Vial (Hum Insulin Nph/Reg Insulin Hm) 100 Unit/1 Ml Vial 20 Unit SQ QEVNG Gabapentin (Gabapentin) 300 Mg Capsule 300 Mg PO TID Excedrin Migraine Caplet (Aspirin/Acetaminophen/Caffeine) 1 Each Tablet 2 Each PO DAILY PRN Ecotrin (Aspirin) 325 Mg Tablet.dr 325 Mg PO DAILY Cetirizine Hcl 10 Mg Tablet 1 Tab PO DAILY Atorvastatin Calcium 10 Mg Tablet 1 Tab PO DAILY Amiodarone Hcl 200 Mg Tablet 1 Tab PO DAILY Vitals/I & O Vital Sign - Last 24 Hours 05/18/20 05/18/20 05/18/20 05/18/20 11:00 15:00 19:58 20:00 Temp 95.7 96.8 98.4 95.7 96.8 98.4 Pulse 68 70 88 Resp 18 18 18 B/P (MAP) 142/97 (112) 140/91 (107) 130/83 (99) Pulse Ox 98 92 97 O2 Delivery Nasal Cannula Nasal Cannula Room Air Nasal Cannula O2 Flow Rate 3.0 3.0 3.0 05/18/20 05/19/20 23:37 03:30 Temp 97.6 97.4 97.6 97.4 Pulse 83 59 Resp 18 18 B/P (MAP) 143/94 (110) 154/92 (112) Pulse Ox 97 97 O2 Delivery Room Air Room Air Intake and Output 05/18/20 05/18/20 05/19/20 14:59 22:59 06:59 Intake Total 900 ml 930 ml 510 ml Output Total 700 ml 2000 ml Balance 900 ml 230 ml -1490 ml Justicifation of Admission Dx: Justifications for Admission: Justification of Admission Dx: Yes Comminuty Aquired Pneumonia: Hypoxemia NUNU VALDEZ MD May 19, 2020 08:41
[2020-05-19 08:44] VITALS: BP 154/92
[2020-05-19] MEDS: ASCORBIC ACID 1,000 MG TABLET PO SCH (08:44)
[2020-05-19] MEDS: AMIODARONE HCL 200 MG TABLET. PO SCH (08:44)
[2020-05-19] MEDS: LACTOBACILLUS RHAMNOSUS GG 1 CAPSULE. PO SCH (08:44)
[2020-05-19] MEDS: ASPIRIN ENTERIC COATED 325 MG TABLET.DR. PO SCH (08:44)
[2020-05-19] MEDS: VITAMIN B12,B9,B6 COMPLEX 1 TABLET. PO SCH (08:44)
[2020-05-19] MEDS: FUROSEMIDE 40 MG TABLET. PO SCH (08:45)
[2020-05-19] MEDS: DEXAMETHASONE SOD PHOS 4 MG/ML VIAL IVP SCH (08:45)
[2020-05-19] MEDS: DOXYCYCLINE HYCLATE 100 MG TABLET PO SCH (08:45)
[2020-05-19] MEDS: ZINC SULFATE 220 MG CAPSULE. PO SCH (08:45)
[2020-05-19] MEDS: PANTOPRAZOLE 40 MG TABLET.DR. PO SCH (08:45)
[2020-05-19] MEDS: GABAPENTIN 300 MG CAPSULE. PO SCH (08:45)
[2020-05-19] MEDS: ATORVASTATIN CALCIUM 10 MG TABLET. PO SCH (08:45)
[2020-05-19] MEDS: CETIRIZINE HCL 10 MG TABLET. PO SCH (08:45)
[2020-05-19] MEDS: ENOXAPARIN 40 MG/0.4 ML SYRINGE. SQ SCH (08:46)
[2020-05-19] MEDS: INSULIN GLARGINE SYRINGE. SQ SCH (08:47)
[2020-05-19] MEDS: FLUTICASONE/VILANTEROL 200/25 INHALER. INH SCH (08:48)
[2020-05-19] MEDS: INSULIN LISPRO 300 UNITS/3 ML VIAL. SQ SCH ×4 (09:27→12:08)
[2020-05-19] MEDS ORDERED: DEXA4TAB PO (10:33)
[2020-05-19] MEDS: cefTRIAXone IV Push 1 GM VIAL. IVP SCH (12:30)
--- NOTE | 2020-05-19 12:37 | NUR ---
Pt discharged, report given to Janet BONE at [facility] at 0959. IV discontinued, and belongings discharged with patient. 2 guards escorted patient out. Pt used only 1L of oxygen, to be continued at facility.
== END 2020-05-19 12:20 | DRG 871 ==
LOC: ER 18:11 → EEVIPCON 18:11 → 6 SOUTH 19:37
PROVIDERS: ADMIT Internal Medicine; ATTEND Internal Medicine
PROC: 5A0935A Assistance with Respiratory Ventilation, Less than 24 Consecutive Hours, High Flow/Velocity Cannula (ICD-10-PCS; 2020-05-11)
PROC: XW033E5 Introduction of Remdesivir Anti-infective into Peripheral Vein, Percutaneous Approach, New Technology Group 5 (ICD-10-PCS; principal; 2020-05-14)
DX: A41.9 Sepsis, unspecified organism (principal); U07.1 COVID-19; E43 Unspecified severe protein-calorie malnutrition; J12.82 Pneumonia due to coronavirus disease 2019; J96.01 Acute respiratory failure with hypoxia; N17.0 Acute kidney failure with tubular necrosis; I10 Essential (primary) hypertension; E78.00 Pure hypercholesterolemia, unspecified; R74.01 Elevation of levels of liver transaminase levels; E11.65 Type 2 diabetes mellitus with hyperglycemia; Z91.19 Patient's noncompliance with other medical treatment and regimen; Z93.3 Colostomy status; Z68.27 Body mass index [BMI] 27.0-27.9, adult; Z90.49 Acquired absence of other specified parts of digestive tract
CPT/HCPCS: 36415; 71045; 80048; 80053; 80076; 81001; 82962; 83690; 83735; 85007; 85025; 93005; J0696; J0780; J1100; J1650; J1815; J2405; J3490; J7030; J7040; J7050; J7060; J7512; 99285-25; G0378